=== PATIENT | male | born 1980 | race Caucasian/White ===

== ENCOUNTER 2018-06-30 20:26 | Outpatient (REF) | payer BC, SELFPAY ==
[2018-06-30 21:34] LABS: Anion Gap 10.4 mmol/L (3-11); BUN 13 mg/dL (7-18); CO2 28.6 mmol/L (21.0-32.0); CREATININE 0.83 mg/dL (0.70-1.30); Calcium 9.4 mg/dL (8.5-10.1); Chloride 101 mmol/L (98-107); Glucose 110 mg/dL (70-100); Potassium 4.3 mmol/L (3.5-5.1); Sodium 140 mmol/L (136-145)
== END 2018-06-30 20:46 ==
LOC: NCHCN 20:26
PROVIDERS: PCP Internal Medicine; Visit Provider Specialist/Technologist Athletic Trainer
DX: Z00.00 Encounter for general adult medical examination without abnormal findings (principal); E11.9 Type 2 diabetes mellitus without complications; I10 Essential (primary) hypertension
CPT/HCPCS: 80048

== ENCOUNTER 2020-11-13 03:24 | Outpatient (CLI) | payer BC, SELFPAY ==
--- NOTE | 2020-12-16 08:38 | W.CARDEVENT ---
Date of service: 12/16/20 Time of Service: 08:38 Cardiac Event Recorder Referring Provider:: Gena Indications:: A Cardiac Event Note: This is a 30-day monitor order for indication of palpitations. ?The patient was in normal sinus rhythm for the majority of the recording with an average heart rate of 87 bpm. ?There were 7 auto triggers which were associated with sinus tachycardia. ?There were 11 patient triggers associated with sinus rhythm and occasional PACs or PVCs. ?There are no episodes of atrial fibrillation, no pauses greater than 3 seconds and no evidence of high degree heart block.
== END 2020-11-13 03:25 | disposition home or self-care (01) ==
LOC: RT 03:24
PROVIDERS: PCP Internal Medicine; Visit Provider Nurse Practitioner Family
DX: R00.2 Palpitations (principal)
CPT/HCPCS: 93270

== ENCOUNTER 2021-01-17 08:44 | Outpatient (REF) | payer BC, SELFPAY ==
[2021-01-17 14:28] LABS: ALT 90 U/L (16-63); AST 31 U/L (15-37); Albumin 4.4 g/dL (3.4-5.0); Alkaline Phosphatase 53 U/L (46-116); BUN 12 mg/dL (7-18); Bilirubin, Total 0.5 mg/dL (0.2-1.0); CREATININE 0.9 mg/dL (0.70-1.30); Calcium 9.2 mg/dL (8.5-10.1); Chloride 105 mmol/L (98-107); Glucose 174 mg/dL (74-106); Potassium 4.6 mmol/L (3.5-5.1); Sodium 141 mmol/L (136-145); Total Protein 7.2 g/dL (6.4-8.2)
[2021-01-17 14:56] LABS: Hemoglobin A1C 7.4 % (<5.7)
[2021-01-17 21:25] LABS: Calculated LDL 62 mg/dL (<100); Cholesterol 124 mg/dL (<200); HDL Cholesterol 31 mg/dL (40-60); Triglyceride 159 mg/dL (<150)
== END 2021-01-17 08:45 | disposition home or self-care (01) ==
LOC: NCHCN 08:44
PROVIDERS: PCP Internal Medicine; Visit Provider Nurse Practitioner Family
DX: E11.9 Type 2 diabetes mellitus without complications (principal); E78.5 Hyperlipidemia, unspecified; I10 Essential (primary) hypertension; I49.9 Cardiac arrhythmia, unspecified
CPT/HCPCS: 80053; 80061; 83036

== ENCOUNTER 2021-05-01 16:48 | Outpatient (REF) | payer BC, SELFPAY ==
[2021-05-01 19:55] LABS: ALT 69 U/L (16-63)
[2021-05-01 20:00] LABS: Hemoglobin A1C 6.9 % (<5.7)
== END 2021-05-01 16:49 | disposition home or self-care (01) ==
LOC: NCHCN 16:48
PROVIDERS: PCP Internal Medicine; Visit Provider Nurse Practitioner Family
DX: Z00.01 Encounter for general adult medical examination with abnormal findings (principal); E11.9 Type 2 diabetes mellitus without complications
CPT/HCPCS: 83036; 84460

== ENCOUNTER 2022-09-21 17:10 | Outpatient (REF) | payer BC, SELFPAY ==
[2022-09-21 19:32] LABS: Hemoglobin A1C 6.8 % (<5.7)
[2022-09-21 19:44] LABS: ALT 65 U/L (16-63); AST 23 U/L (15-37); Albumin 4.4 g/dL (3.4-5.0); Alkaline Phosphatase 56 U/L (46-116); Anion Gap 8.7 mmol/L (3-11); BUN 16 mg/dL (7-18); Bilirubin, Total 0.5 mg/dL (0.2-1.0); CO2 27.3 mmol/L (21.0-32.0); Calcium 9.4 mg/dL (8.5-10.1); Chloride 104 mmol/L (98-107); Estimated GFR 96.97 (mL/min/1.73m2); Glucose 124 mg/dL (74-106); Magnesium 2.1 mg/dL (1.8-2.4); Potassium 4.1 mmol/L (3.5-5.1); Sodium 140 mmol/L (136-145); Total Protein 7.5 g/dL (6.4-8.2)
== END 2022-09-21 17:11 | disposition home or self-care (01) ==
LOC: NCHCN 17:10
PROVIDERS: PCP Internal Medicine; Visit Provider Nurse Practitioner Family
DX: Z00.00 Encounter for general adult medical examination without abnormal findings (principal); E11.9 Type 2 diabetes mellitus without complications; I10 Essential (primary) hypertension; E78.5 Hyperlipidemia, unspecified; R25.2 Cramp and spasm
CPT/HCPCS: 80053; 83036; 83735

== ENCOUNTER 2023-08-13 17:18 | Outpatient (REF) | payer BC, SELFPAY ==
[2023-08-13 20:06] LABS: Hemoglobin A1C 6.9 % (<5.7)
[2023-08-13 20:37] LABS: ALT 81 U/L (16-63); AST 33 U/L (15-37); Albumin 4.6 g/dL (3.4-5.0); Alkaline Phosphatase 54 U/L (46-116); Anion Gap 9.5 mmol/L (3-11); BUN 16 mg/dL (7-18); Bilirubin, Total 0.6 mg/dL (0.2-1.0); CO2 28.5 mmol/L (21.0-32.0); Calcium 9.5 mg/dL (8.5-10.1); Chloride 102 mmol/L (98-107); Estimated GFR 96.37 (mL/min/1.73m2); Glucose 179 mg/dL (74-106); Potassium 4.1 mmol/L (3.5-5.1); Sodium 140 mmol/L (136-145)
== END 2023-08-13 17:19 | disposition home or self-care (01) ==
LOC: NCHCN 17:18
PROVIDERS: PCP Internal Medicine; Visit Provider Nurse Practitioner Family
DX: E11.9 Type 2 diabetes mellitus without complications (principal); E78.5 Hyperlipidemia, unspecified
CPT/HCPCS: 80053; 83036

== ENCOUNTER 2024-03-14 14:36 | Observation (INO) | payer BC, SELFPAY ==
[2024-03-14 14:45] VITALS: BP 143/98; PULSE 61; RESP 10; TEMP 36.4; O2SAT 97
--- NOTE | 2024-03-14 14:45 | RT.EKG_ITS ---
APPROVED REPORT Exam: Resting ECG Reason for Exam: dizzy Patient Location: E HR:65 bpm ECG Measurements Heart Rate 65 AXIS CA 164 P 39 QRSd 117 QRS 40 QT 394 T 43 QTc 411 Conclusion Sinus rhythm, rate 65 ST elevation consistent with benign early repol, inf. leads
[2024-03-14 14:53] VITALS: RESP 12
[2024-03-14 15:57] LABS: Abs Immature Grans 0.03 10^3/uL (0.0-0.06); Absolute Basophil Count 0.07 10^3/uL (0.0-0.2); Absolute Eosinophil Count 0.09 10^3/uL (0.0-0.7); Absolute Lymphocyte Count 1.26 10^3/uL (1.2-3.4); Absolute Monocyte Count 0.65 10^3/uL (0.1-0.8); Absolute Neutrophil Count 4.61 10^3/uL (1.2-6.7); Eosinophils % 1.3 %; HCT 53.4 % (40.0-50.0); HGB 18.3 g/dL (13.5-17.5); Immature Grans % 0.4 %; Lymphocytes % 18.8 %; MCH 30.6 pg (27.0-33.0); MCHC 34.3 % (32.0-36.0); MCV 89 fL (80-95); Monocytes % 9.7 %; Neutrophils % 68.8 %; Platelet Count 266 10^3/uL (130-400); RBC 5.99 10^6/uL (4.36-5.78); RDW 12.1 % (11.8-14.1); WBC 6.71 10^3/uL (4.4-10.8)
--- NOTE | 2024-03-14 16:03 | W.ED.GENAD ---
Discharge Plan Disposition Patient Disposition: Admit to [facility] Condition: Stable Discharge Details Chief Complaint: Dizzy/Sync Clinical Impression: Binocular vision disorder with diplopia, Ataxic gait determined by examination Primary Care Provider: Jesus Calvo ED Provider: Catherine Pinedo Home Meds and New Rx's Prescriptions: No Action Jardiance 10 mg tablet 10 mg PO DAILY lisinopril 5 mg tablet 5 mg PO DAILY metformin 500 mg tablet 1,000 mg PO BID rosuvastatin 10 mg tablet 10 mg PO DAILY loratadine [Allerclear] 10 mg tablet 10 mg PO DAILY HPI General Mode of arrival: ambulatory. Date/Time Provider Initiated Documentation: 03/14/24 14:43. Limitations to Documentation: no limitations. Information obtained by: patient, family and old records reviewed. HPI Narrative: HPI: This is a 43-year-old male patient with a past medical history of type 2 diabetes, presenting for evaluation of double vision. The patient reports that at 7 or 730 this morning he was taking a shower, had close his eyes to wash his face and when he opened them again he noted that he was experiencing double vision. He reports that this double vision has persisted throughout the morning, and prompted him to seek care when it did not get better on its own. The patient wears glasses for visual correction, states that when both of his eyes are open and they seem blurry and he has double vision but it corrects when he closes 1 or the other of his eye. Prior to this event the patient was in his normal state of health. He has not had trauma, illness, or fever. He has no personal history of stroke, has not undergone any chiropractic manipulations of his neck. He has been taking all of his medications as prescribed. He has no personal cardiac disease, no chest pain, no shortness of breath. He does note that his gait seems slightly unsteady and he felt unsafe walking. Has not noted any weakness, numbness of any part of his body. Has no personal history of thromboembolic disease and does not utilize anticoagulant medications. Exam: Gen: Awake and alert, in no apparent distress HEENT: Non-icteric sclera, pupils are equal and reactive at 3 mm bilaterally. EOMs are full without grossly apparent cranial nerve deficits, the diplopia is reproducible with downward gaze, no nystagmus appreciated. No visual field cuts, visual acuity is 20/20 for each eye individually, 20/70 with binocular vision, corrected. Neck: Supple, no meningismus or pain Lungs: No apparent respiratory distress, normal respiratory effort. CV: Appears well perfused, strong and symmetrical distal pulses Abdomen: Non-distended MSK: Moves 4 extremities without apparent limitation in ROM Skin: Visualized skin without rashes, cyanosis. Neuro: Cranial nerves II through XII intact and symmetrical bilaterally with the exception of the reported double vision. 5 out of 5 strength x 4 extremities, no pronator drift. The patient has minimally poor targeting with [id number] on the left side, and his gait is notable for severe left sided ataxia. Psych: Appropriate for situation. MDM: In brief, this is a 43-year-old male patient with a history of diabetes presenting for evaluation of sudden onset diplopia and ataxia. Last seen normal 7 AM, out of range of tPA administration time. My differential includes but is not limited to stroke, vascular abnormality including aneurysm, dissection, considered intracranial hemorrhage. Considered intracranial mass with mass effect, cranial nerve compression, venous sinus thrombosis. I considered demyelinating diseases. No headache or eye pain to suggest temporal arteritis, glaucoma, optic neuritis. No fever to suggest meningitis or encephalitis, no recent trauma. We will obtain laboratory studies to include CBC, CMP, troponin, magnesium, PT/INR. Unfortunately, we do not have the ability to get a MRI in our facility at this time of day, so our initial imaging strategy will be CT/CTA of the head and neck. ED Course: I independently interpreted the laboratory studies, which show no significant leukocytosis, anemia, or thrombocytopenia. The chemistry panel is without evidence of electrolyte abnormality, kidney dysfunction, or liver injury. Was negative. CTA imaging of the head and neck was independently reviewed by myself, shows no evidence of intracranial hemorrhage, vascular abnormality, or mass effect. [facility] teleneurology was consulted, who evaluated the patient, and are concerned for a left 4th nerve palsy, left gait ataxia, and recommended MRI with and without contrast to evaluate for microvascular disease, stroke, demyelinating disease, etc. Unfortunately, [facility] is unable able to accept patients for admission at this time, and so the patient will be admitted to our hospital team awaiting MRI. I did load the patient with aspirin and Plavix, and obtained laboratory studies to include A1c, lipid panel, ESR, and TSH per neurology request. The patient remained hemodynamically appropriate while under my care and was transferred from our department without incident. Catherine Pinedo MD Related Data Home Medications ?Medication ?Instructions ?Recorded ?Confirmed empagliflozin 10 mg tablet 10 mg PO DAILY 03/14/24 03/14/24 (Jardiance) lisinopril 5 mg tablet 5 mg PO DAILY 03/14/24 03/14/24 loratadine 10 mg tablet 10 mg PO DAILY 03/14/24 03/14/24 (Allerclear) metformin 500 mg tablet 1,000 mg PO BID 03/14/24 03/14/24 rosuvastatin 10 mg tablet 10 mg PO DAILY 03/14/24 03/14/24 Allergies Allergy/AdvReac Type Severity Reaction Status Date / Time No Known Allergies Allergy Unverified 03/14/24 14:48 General Stated Complaint: Dizzy/Sync TARYN: 2 Course Vital Signs Vital signs: Vital Signs Temperature 36.4 C 03/14/24 14:45 Pulse 61 03/14/24 14:45 Respiratory Rate 10 L 03/14/24 14:45 Blood Pressure 143/98 H 03/14/24 14:45 Pulse Oximetry 97 03/14/24 14:45 Temperature 36.4 C 03/14/24 14:45 Temperature Source Skin 03/14/24 14:45 Pulse 61 03/14/24 14:45 Respiratory Rate 12 03/14/24 14:53 Respiratory Effort Normal, Non-Labored 03/14/24 14:53 Respiratory Depth Normal 03/14/24 14:53 Respiratory Pattern Normal 03/14/24 14:53 Blood Pressure 143/98 H 03/14/24 14:45 Blood Pressure Position Sitting 03/14/24 14:45 Pulse Oximetry 97 03/14/24 14:45 Oxygen Delivery Method Room Air 03/14/24 14:45 Oxygen Flow Rate 0 03/14/24 14:45 Pain Level 0 03/14/24 14:45 Lab/Test Results Lab/Test Results: Laboratory Tests Range/Units 03/14/24 15:35 WBC (4.4-10.8) 10^3/uL 6.71 RBC (4.36-5.78) 10^6/uL 5.99 H Hgb (13.5-17.5) g/dL 18.3 H Hct (40.0-50.0) % 53.4 H MCV (80-95) fL 89 MCH (27.0-33.0) pg 30.6 MCHC (32.0-36.0) % 34.3 RDW (11.8-14.1) % 12.1 Plt Count (130-400) 10^3/uL 266 MPV (8.0-11.0) fL 10.0 Immature Gran % % 0.4 Neutrophils % % 68.8 Lymphocytes % % 18.8 Monocytes % % 9.7 Eosinophils % % 1.3 Basophils % % 1.0 Nucleated RBC % (0.0-0.3) % 0.0 Absolute Neutrophils (1.2-6.7) 10^3/uL 4.61 Absolute Lymphocytes (1.2-3.4) 10^3/uL 1.26 Absolute Monocytes (0.1-0.8) 10^3/uL 0.65 Absolute Eosinophils (0.0-0.7) 10^3/uL 0.09 Absolute Basophils (0.0-0.2) 10^3/uL 0.07 Medical Decision Making Quality:SDOH Health Related Social Needs: No Data to Display Critical Care Time Critical Care Time Critical Care Time: Yes Total Critical Care Time: 45 Attestation: Upon my evaluation, this patient had a high probability of imminent or life-threatening deterioration due to cerebellar stroke, which required my direct attention, intervention, and personal management. I have personally provided 45 minutes of critical care time exclusive of time spent on separately billable procedures. Time includes review of laboratory data, radiology results, discussion with consultants, and monitoring for potential decompensation. Interventions were performed as documented above. Catherine Pinedo MD [facility] All Active Problems (Updated 03/14/24 @ 22:07 by Catherine Pinedo MD) Ataxic gait determined by examination (Acute) Binocular vision disorder with diplopia (Acute) Social History Smoking/Tobacco Use Status: Never Smoking risk assessment performed?: Yes Alcohol Intake: current Alcohol Intake frequency: a few times a month Drug use: Never Substance use type: does not use Housing: house Do you feel safe at home: Yes Do you feel safe in your relationship?: Yes PAWSS Have you Been Recently Intoxicated or Drunk Within the Last 30 days?: No Have you Ever Experienced Previous Episodes of Alcohol Withdrawal?: No Have you ever Experienced Withdrawal Seizures?: No Have you ever Experienced Delirium Tremens(DT)s?: No Have you ever undergone Alcohol Rehabilitation Treatment (i.e, inpt ot outpatient treatment programs)?: No Have you ever Experienced Blackouts?: No Have you ever Combined Alcohol with other Downers within the last 90 days?: No Have you ever Combined Alcohol with any other Substance of Abuse during the last 90 days?: No Positive Blood Alcohol level on Presentation? [PCS.BAL]: No Evidence of Increased Autonomic Activity (i.e. HR>120, tremor, sweating, agitation, nausea)?: No Result: 0
[2024-03-14 16:21] LABS: ALT 81 U/L (16-63); AST 23 U/L (15-37); Albumin 4.6 g/dL (3.4-5.0); Alkaline Phosphatase 60 U/L (46-116); BUN 13 mg/dL (7-18); Bilirubin, Total 0.76 mg/dL (0.2-1.0); CREATININE 0.8 mg/dL (0.70-1.30); Calcium 9.6 mg/dL (8.5-10.1); Chloride 103 mmol/L (98-107); Estimated GFR 113.32 (mL/min/1.73m2); Glucose 145 mg/dL (74-106); Potassium 3.7 mmol/L (3.5-5.1); Sodium 141 mmol/L (136-145); Troponin I 9 ng/L (4-76)
[2024-03-14 16:23] LABS: INR 1.1 (0.9-1.1); Prothrombin Time 10.9 sec (9.1-11.1)
[2024-03-14] MEDS: Omnipaque 350 MG/ML 100 ML BTL 70 ML IJ (16:54)
[2024-03-14] MEDS: Normal Saline - Diluent 50 ML VIAL IJ (16:54)
--- NOTE | 2024-03-14 17:00 | DI.CT_ITS ---
Exam(s) CT BRAIN NECK CTA EXAM: CT BRAIN NECK CTA CLINICAL HISTORY: Double vision, ataxia. TECHNIQUE: Imaging Protocol: Axial CT angiography was performed with multi-slice acquisition and mu lti-planar and/or 3D reconstructions. CONTRAST MATERIAL: Intravenous: Omnipaque 350 contrast volume:70 mL COMPARISON: No exams were available for comparison FINDINGS: CT Head W/O and W: Ventricles and Extra axial spaces: Normal in size and morphology for the patient's age. Hemorrhage: None. Cerebral parenchyma: There is a normal live-white matter differentiation. Midline shift: None. Brainstem/Cerebellum: Normal. Calvarium: Normal. Visualized Paranasal sinuses/Mastoids: Clear. Soft Tissues: Unremarkable. Enhancement: Unremarkable. Pituitary gland: Pituitary gland appears grossly unremarkable. No evidence of a sellar or suprasella r mass is appreciated. CTA Neck W: Common Carotid: Right: No dissection, occlusion or significant stenosis. Left: No dissection, occlusion or significant stenosis. External Carotid: Right: No occlusion or significant stenosis. Left: No occlusion or significant stenosis. Internal Carotid: Right: No dissection, occlusion or significant stenosis. Left: No dissection, occlusion or significant stenosis. Vertebral Artery: Right: No dissection, occlusion or significant stenosis. Left: No dissection, occlusion or significant stenosis. Lung Apices: Normal. Bones: Within normal limits for the patient's age. Soft Tissues: Normal. Thyroid gland: Unremarkable. CTA Brain W: Internal Carotid Arteries: Mild atherosclerotic calcification is seen in the cavernous portion of the right internal carotid artery. No occlusion or significant stenosis is seen. No aneurysm is apprec iated. Anterior Cerebral Arteries: Right: No aneurysm, occlusion or significant stenosis. Left: No aneurysm, occlusion or significant stenosis. Middle Cerebral Arteries: Right: No aneurysm, occlusion or significant stenosis. Left: No aneurysm, occlusion or significant stenosis. Posterior Cerebral Arteries: Right: No aneurysm, occlusion or significant stenosis. Left: No aneurysm, occlusion or significant stenosis. Vertebral Arteries: Right: No aneurysm, occlusion or significant stenosis. Left: No aneurysm, occlusion or significant stenosis. Basilar Artery: No aneurysm, occlusion or significant stenosis. IMPRESSION: 1. No large vessel occlusion or significant stenosis on the CT angiography of the head. 2. No acute intracranial process. 3. No occlusion or significant stenosis on the CT angiography of the neck. RADIATION DOSE DELIVERED: 2,427.67mGy.cm Total DLP DATA REPOSITORY: All CT scans at this facility are submitted to the National Radiology Data Registry (NRDR) Dose Index Registry (DIR) with the [employer] ([employer]). RADIATION OPTIMIZATION: All CT scans at this facility use at least one of these dose optimization te chniques: automated exposure control; mA and/or kV adjustment per patient size (includes targeted exa ms where dose is matched to clinical indication); or iterative reconstruction.
[2024-03-14 17:58] LABS: Troponin I 7 ng/L (4-76)
[2024-03-14 18:30] VITALS: BP 140/66; PULSE 78; RESP 16; O2SAT 96
[2024-03-14] MEDS: Acetaminophen 500 MG TAB 1000 MG PO (19:00)
--- NOTE | 2024-03-14 19:16 | NUR.NOTE ---
Nursing Note: this radio script writer in room for teleneuro consult; assisted with exam.
[2024-03-14 20:00] LABS: ESR 3 mm/hr (0-15)
[2024-03-14] MEDS: Aspirin 81 MG CHEW 324 MG CH (20:04)
[2024-03-14] MEDS: Clopidogrel 300 MG TAB PO ×2 (20:04)
[2024-03-14 20:11] LABS: Hemoglobin A1C 7.8 % (<5.7)
[2024-03-14 20:19] LABS: Calculated LDL 73 mg/dL (<100); Cholesterol 128 mg/dL (<200); HDL Cholesterol 36 mg/dL (40-60); TSH (W/Ref FT4) 0.78 uIU/mL (0.36-3.74); Triglyceride 96 mg/dL (<150)
[2024-03-14 21:56] VITALS: BP 133/69; PULSE 80; RESP 16; O2SAT 97
--- NOTE | 2024-03-14 22:38 | HPE_ITS ---
Date of service: 03/14/24 Time of Service: 22:38 Assessment and Plan Assessment and plan (1) Binocular vision disorder with diplopia: Start date: 03/14/24 Status: Acute Assessment and plan: This is a 43-year-old gentleman with sudden onset of vertical diplopia without obvious nystagmus and only slight right temporal headache after the onset of symptoms. He also has discoordinated over his left side. Double vision disappears with sitting still and rest as well as when he closes either eye. CTA of the head and neck were nonrevealing and patient is scheduled for MRI with and without contrast in the morning for further diagnostic evaluation. He is diabetic which prevent risk for microvascular infarction. Differential diagnosis includes embolic disease and if evaluation for CVA is completely negative, patient will follow-up with ophthalmology with whom he already has a relationship. He is on dual platelet therapy and is on DVT prophylaxis with no contraindication this treatment. Will be seen by physical therapy. Follow-up teleneurology consultation may be sought after investigations completed especially if patient is not continuing to improve. His antihypertensive treatment will be held with permissive hypertension. He is a full code. (2) Ataxia due to acute cerebrovascular disease: Start date: 03/14/24 Status: Acute Assessment and plan: Associated with vertical diplopia. Evaluation as above. Physical therapy evaluation and treatment. (3) Polycythemia: Start date: 03/14/24 Status: Acute Assessment and plan: Patient did have a hematocrit about 50% of admission but this corrected with fluid resuscitation given in the ED. Trend labs. Consider further evaluation with ferritin and iron levels if indicated. (4) HTN (hypertension): Status: Chronic Assessment and plan: Permissive hypertension possibility of acute CVA. Qualifiers: Hypertension type: primary hypertension Qualified Code(s): I10 - Essential (primary) hypertension (5) Type 2 diabetes mellitus: Status: Chronic Assessment and plan: Hold outpatient medical therapy and check glucometers before meals and at bedtime with sliding scale coverage using short acting insulin. Qualifiers: Diabetes mellitus complication status: without complication Diabetes mellitus termite treater helper insulin use: without termite treater helper use Qualified Code(s): E11.9 - Type 2 diabetes mellitus without complications (6) Hyperlipidemia: Status: Chronic Assessment and plan: Continue statin therapy. Qualifiers: Hyperlipidemia type: mixed hyperlipidemia Qualified Code(s): E78.2 - Mixed hyperlipidemia History of Present Illness History of Present Illness Chief Complaint: Double vision Narrative: This is a 43-year-old male patient with sudden onset of double vision without headache initially but now mild flight parietal headache and having some focal incoordination over his left side. He reported to the ED and was evaluated with normal CTA of the head neck and no dysrhythmias. Teleneurology did recommend observation with dual antiplatelet therapy initiated and follow-up MRI with and without contrast in the morning. Patient sed rate was normal and the differential diagnosis includes CVA not be a candidate for tPA with the patient not reporting to the ED for hours after onset of symptoms and having no large vessel occlusions requiring thrombectomy. He does have diabetes as risk factor this might be a microvascular infarction. Demyelinating disease is in the differential and should be ruled out by MRI with and without contrast and is reassuring that he has normal sed rate. Patient will have full evaluation for stroke symptoms including echo with bubble study and MRI. Physical therapy will evaluate and treat the patient. He still having marked dysfunction with discoordination over his left side. At rest his double vision improves but he still sees objects stacked on top of each other when he moves around the room or moves his head. His diplopia goes away when he closes either eye. He has no other neurological complaints. He denies any vertiginous symptoms or nausea. He is a full code. Review of Systems Narrative: 13 point review of systems otherwise unrevealing or stable. PFSH All Active Problems (Updated 03/14/24 @ 23:16 by Baudilio Soto) Polycythemia (Acute) Hyperlipidemia (Chronic) Type 2 diabetes mellitus (Chronic) HTN (hypertension) (Chronic) Ataxia due to acute cerebrovascular disease (Acute) Ataxic gait determined by examination (Acute) Binocular vision disorder with diplopia (Acute) Social History Smoking/Tobacco Use Status: Never Smoking risk assessment performed?: Yes Alcohol Intake: current Alcohol Intake frequency: a few times a month Drug use: Never Substance use type: does not use Housing: house Do you feel safe at home: Yes Do you feel safe in your relationship?: Yes Meds Allergies and Home Medications Allergies Allergy/AdvReac Type Severity Reaction Status Date / Time No Known Allergies Allergy Unverified 03/14/24 14:48 Home Medications ?Medication ?Instructions ?Recorded ?Confirmed ?Type empagliflozin 10 mg tablet 10 mg PO DAILY 03/14/24 03/14/24 History (Jardiance) lisinopril 5 mg tablet 5 mg PO DAILY 03/14/24 03/14/24 History loratadine 10 mg tablet 10 mg PO DAILY 03/14/24 03/14/24 History (Allerclear) metformin 500 mg tablet 1,000 mg PO BID 03/14/24 03/14/24 History rosuvastatin 10 mg tablet 10 mg PO DAILY 03/14/24 03/14/24 History Exam Narrative Exam Narrative: General: Patient appears appropriate for age, moderately obese, alert and oriented x 3 and in no acute distress. HEENT: Normocephalic, eyes with pupils equal and react to light symmetrically, extraocular movement is intact without nystagmus. Sclerae anicteric. Oropharynx with moist mucosa and good dentition. Neck: Supple without JVD and no auscultated bruits. Back: Stooped posture without CVA tenderness. Lungs: Clear to auscultation percussion with normal aeration with no focalizing rales or rhonchi. Expiratory wheeze. Heart: Regular rate and rhythm with no murmurs gallops appreciated. Abdomen: Obese contour, soft nontender to palpation with no palpable hepatosplenomegaly. Bowel sounds positive all quadrants. Genitalia/rectal exam deferred. Extremities without clubbing, cyanosis or pitting edema. Peripheral pulses intact. Skin: Normal color, warm and dry. Neuro: Cranial nerves II through XII gross intact, no focalizing motor weakness or deficits. Romberg is positive the patient swelling to the left. No Babinski's. DTRs of his symmetrical. No tremor. Heel-to-toe walking is impaired as is [id number] touch with the left hand. (See teleneurology's consultation with evaluation for detailed neurological exam). Psych: Normal affect, normal mood. No abnormal thought processes. Remote and recent memory intact. Results Imaging Imaging Studies: EXAM: CT BRAIN NECK CTA CLINICAL HISTORY: Double vision, ataxia. TECHNIQUE: Imaging Protocol: Axial CT angiography was performed with multi- slice acquisition and multi-planar and/or 3D reconstructions. CONTRAST MATERIAL: Intravenous: Omnipaque 350 contrast volume:70 mL COMPARISON: No exams were available for comparison FINDINGS: CT Head W/O and W: Ventricles and Extra axial spaces: Normal in size and morphology for the patient's age. Hemorrhage: None. Cerebral parenchyma: There is a normal live-white matter differentiation. Midline shift: None. Brainstem/Cerebellum: Normal. Calvarium: Normal. Visualized Paranasal sinuses/Mastoids: Clear. Soft Tissues: Unremarkable. Enhancement: Unremarkable. Pituitary gland: Pituitary gland appears grossly unremarkable. No evidence of a sellar or suprasellar mass is appreciated. CTA Neck W: Common Carotid: Right: No dissection, occlusion or significant stenosis. Left: No dissection, occlusion or significant stenosis. External Carotid: Right: No occlusion or significant stenosis. Left: No occlusion or significant stenosis. Internal Carotid: Right: No dissection, occlusion or significant stenosis. Left: No dissection, occlusion or significant stenosis. Vertebral Artery: Right: No dissection, occlusion or significant stenosis. Left: No dissection, occlusion or significant stenosis. Lung Apices: Normal. Bones: Within normal limits for the patient's age. Soft Tissues: Normal. Thyroid gland: Unremarkable. CTA Brain W: Internal Carotid Arteries: Mild atherosclerotic calcification is seen in the cavernous portion of the right internal carotid artery. No occlusion or significant stenosis is seen. No aneurysm is appreciated. Anterior Cerebral Arteries: Right: No aneurysm, occlusion or significant stenosis. Left: No aneurysm, occlusion or significant stenosis. Middle Cerebral Arteries: Right: No aneurysm, occlusion or significant stenosis. Left: No aneurysm, occlusion or significant stenosis. Posterior Cerebral Arteries: Right: No aneurysm, occlusion or significant stenosis. Left: No aneurysm, occlusion or significant stenosis. Vertebral Arteries: Right: No aneurysm, occlusion or significant stenosis. Left: No aneurysm, occlusion or significant stenosis. Basilar Artery: No aneurysm, occlusion or significant stenosis. IMPRESSION: 1. No large vessel occlusion or significant stenosis on the CT angiography of the head. 2. No acute intracranial process. 3. No occlusion or significant stenosis on the CT angiography of the neck. Labs 03/15/24 05:40 03/15/24 05:40 Labs: Laboratory Results - last 24 hr 03/14/24 03/14/24 03/14/24 15:35 16:06 16:30 WBC 6.71 RBC 5.99 H Hgb 18.3 H Hct 53.4 H MCV 89 MCH 30.6 MCHC 34.3 RDW 12.1 Plt Count 266 MPV 10.0 Immature Gran % 0.4 Neutrophils % 68.8 Lymphocytes % 18.8 Monocytes % 9.7 Eosinophils % 1.3 Basophils % 1.0 Nucleated RBC % 0.0 Absolute Neutrophils 4.61 Absolute Lymphocytes 1.26 Absolute Monocytes 0.65 Absolute Eosinophils 0.09 Absolute Basophils 0.07 ESR 3 PT 10.9 INR 1.1 Sodium 141 Potassium 3.7 Chloride 103 Carbon Dioxide 26.0 Anion Gap 12.0 H BUN 13 Creatinine 0.8 Est GFR (CKD-EPI 2020) 113.32 Glucose 145 H Hemoglobin A1c 7.8 H Calcium 9.6 Magnesium 2.0 Total Bilirubin 0.76 AST 23 ALT 81 H Alkaline Phosphatase 60 Troponin I High Sens 9 7 Total Protein 8.0 Albumin 4.6 Triglycerides 96 Total Cholesterol 128 LDL Cholesterol, Calc 73 HDL Cholesterol 36 L TSH 0.78 03/14/24 18:46 WBC RBC Hgb Hct MCV MCH MCHC RDW Plt Count MPV Immature Gran % Neutrophils % Lymphocytes % Monocytes % Eosinophils % Basophils % Nucleated RBC % Absolute Neutrophils Absolute Lymphocytes Absolute Monocytes Absolute Eosinophils Absolute Basophils ESR PT INR Sodium Potassium Chloride Carbon Dioxide Anion Gap BUN Creatinine Est GFR (CKD-EPI 2020) Glucose Hemoglobin A1c Calcium Magnesium Total Bilirubin AST ALT Alkaline Phosphatase Troponin I High Sens Cancelled Total Protein Albumin Triglycerides Total Cholesterol LDL Cholesterol, Calc HDL Cholesterol TSH Last Vital Signs Temp 36.4 C 03/14/24 14:45 Pulse 80 03/14/24 21:56 Resp 16 03/14/24 21:56 BP 133/69 03/14/24 21:56 Pulse Ox 97 03/14/24 21:56 PAWSS Have you Been Recently Intoxicated or Drunk Within the Last 30 days?: No Have you Ever Experienced Previous Episodes of Alcohol Withdrawal?: No Have you ever Experienced Withdrawal Seizures?: No Have you ever Experienced Delirium Tremens(DT)s?: No Have you ever undergone Alcohol Rehabilitation Treatment (i.e, inpt ot outpatient treatment programs)?: No Have you ever Experienced Blackouts?: No Have you ever Combined Alcohol with other Downers within the last 90 days?: No Have you ever Combined Alcohol with any other Substance of Abuse during the last 90 days?: No Positive Blood Alcohol level on Presentation? [PCS.BAL]: No Evidence of Increased Autonomic Activity (i.e. HR>120, tremor, sweating, agitation, nausea)?: No Result: 0 Time Spent Time spent with Patient: >75 minutes Time was spent: preparing to see the patient(eg.review tests), obtaining and/or reviewing separately otained hiistory, ordering medications,tests, procedures, referring, communicating with other health physician primary care sports medicine, indepentently interpreting results, counseling the patient and care coordination
--- NOTE | 2024-03-15 00:28 | W.PC.ACHO ---
Registration Status: Primary Language: Preferred Language: ED Information & Data Chief Complaint Dizzy/Sync 03/14/24 16:04 Triage Note patient had sudden onset of 03/14/24 14:45 dizziness when he closed his eyes to wash his hair and then opened them at the spell hit. vision is blurred and doubled. has type II DM . Most Recent Vital Signs Temperature 36.4 C 03/14/24 14:45 Temperature Source Skin 03/14/24 14:45 Pulse 80 03/14/24 21:56 Respiratory Rate 16 03/14/24 21:56 Respiratory Effort Normal, Non-Labored 03/14/24 14:53 Respiratory Depth Normal 03/14/24 14:53 Respiratory Pattern Normal 03/14/24 14:53 Blood Pressure 133/69 03/14/24 21:56 Blood Pressure Position Sitting 03/14/24 14:45 Pulse Oximetry 97 03/14/24 21:56 Oxygen Delivery Method Room Air 03/14/24 21:56 Oxygen Flow Rate 0 03/14/24 21:56 Pain Level 0 03/14/24 14:45 Allergies No Known Allergies Allergy (Unverified 03/14/24 14:48) Precautions Isolation Standard precaution 03/14/24 14:51 Active Medications Generic Name Dose Route Start Last Admin Trade Name Freq PRN Reason Stop Dose Admin Iohexol 70 ml 03/14/24 17:00 03/14/24 16:54 Omnipaque 350 Mg/Ml 100 Ml Btl IJ 04/13/24 23:59 70 ml DIRECTED OLGA LIDIA Administration Sodium Chloride 50 ml 03/14/24 17:00 03/14/24 16:54 Normal Saline - Diluent 50 Ml Vial IJ 50 ml .FOR DI USE OLGA LIDIA Administration IV IV Catheter Type [Right Saline Lock Antecubital] IV Catheter Gauge [Right 18 Antecubital] Diagnostics 03/14/24 03/14/24 03/14/24 Range/Units 23:13 18:46 16:30 WBC Pending (4.4-10.8) 10^3/uL RBC Pending (4.36-5.78) 10^6/uL Hgb Pending (13.5-17.5) g/dL Hct Pending (40.0-50.0) % MCV Pending (80-95) fL MCH Pending (27.0-33.0) pg MCHC Pending (32.0-36.0) % RDW Pending (11.8-14.1) % Plt Count Pending (130-400) 10^3/uL MPV Pending (8.0-11.0) fL Immature Gran % % Neutrophils % % Lymphocytes % % Monocytes % % Eosinophils % % Basophils % % Nucleated RBC % (0.0-0.3) % Absolute Neutrophils (1.2-6.7) 10^3/uL Absolute Lymphocytes (1.2-3.4) 10^3/uL Absolute Monocytes (0.1-0.8) 10^3/uL Absolute Eosinophils (0.0-0.7) 10^3/uL Absolute Basophils (0.0-0.2) 10^3/uL ESR (0-15) mm/hr PT (9.1-11.1) sec INR (0.9-1.1) Sodium (136-145) mmol/L Potassium (3.5-5.1) mmol/L Chloride (98-107) mmol/L Carbon Dioxide (21.0-32.0) mmol/L Anion Gap (3-11) mmol/L BUN (7-18) mg/dL Creatinine (0.70-1.30) mg/dL Est GFR (CKD-EPI 2020) (mL/min/1.73m2) Glucose (74-106) mg/dL Hemoglobin A1c (<5.7) % Calcium (8.5-10.1) mg/dL Magnesium (1.8-2.4) mg/dL Total Bilirubin (0.2-1.0) mg/dL AST (15-37) U/L ALT (16-63) U/L Alkaline Phosphatase (46-116) U/L Troponin I High Sens Cancelled 7 (4-76) ng/L Total Protein (6.4-8.2) g/dL Albumin (3.4-5.0) g/dL Triglycerides (<150) mg/dL Total Cholesterol (<200) mg/dL LDL Cholesterol, Calc (<100) mg/dL HDL Cholesterol (40-60) mg/dL TSH (0.36-3.74) uIU/mL 03/14/24 03/14/24 Range/Units 16:06 15:35 WBC 6.71 (4.4-10.8) 10^3/uL RBC 5.99 H (4.36-5.78) 10^6/uL Hgb 18.3 H (13.5-17.5) g/dL Hct 53.4 H (40.0-50.0) % MCV 89 (80-95) fL MCH 30.6 (27.0-33.0) pg MCHC 34.3 (32.0-36.0) % RDW 12.1 (11.8-14.1) % Plt Count 266 (130-400) 10^3/uL MPV 10.0 (8.0-11.0) fL Immature Gran % 0.4 % Neutrophils % 68.8 % Lymphocytes % 18.8 % Monocytes % 9.7 % Eosinophils % 1.3 % Basophils % 1.0 % Nucleated RBC % 0.0 (0.0-0.3) % Absolute Neutrophils 4.61 (1.2-6.7) 10^3/uL Absolute Lymphocytes 1.26 (1.2-3.4) 10^3/uL Absolute Monocytes 0.65 (0.1-0.8) 10^3/uL Absolute Eosinophils 0.09 (0.0-0.7) 10^3/uL Absolute Basophils 0.07 (0.0-0.2) 10^3/uL ESR 3 (0-15) mm/hr PT 10.9 (9.1-11.1) sec INR 1.1 (0.9-1.1) Sodium 141 (136-145) mmol/L Potassium 3.7 (3.5-5.1) mmol/L Chloride 103 (98-107) mmol/L Carbon Dioxide 26.0 (21.0-32.0) mmol/L Anion Gap 12.0 H (3-11) mmol/L BUN 13 (7-18) mg/dL Creatinine 0.8 (0.70-1.30) mg/dL Est GFR (CKD-EPI 2020) 113.32 (mL/min/1.73m2) Glucose 145 H (74-106) mg/dL Hemoglobin A1c 7.8 H (<5.7) % Calcium 9.6 (8.5-10.1) mg/dL Magnesium 2.0 (1.8-2.4) mg/dL Total Bilirubin 0.76 (0.2-1.0) mg/dL AST 23 (15-37) U/L ALT 81 H (16-63) U/L Alkaline Phosphatase 60 (46-116) U/L Troponin I High Sens 9 (4-76) ng/L Total Protein 8.0 (6.4-8.2) g/dL Albumin 4.6 (3.4-5.0) g/dL Triglycerides 96 (<150) mg/dL Total Cholesterol 128 (<200) mg/dL LDL Cholesterol, Calc 73 (<100) mg/dL HDL Cholesterol 36 L (40-60) mg/dL TSH 0.78 (0.36-3.74) uIU/mL [id number] Documentation Fingerstick Glucose Start: 03/14/24 15:00 Freq: Status: Complete Protocol: Activity Type Activity Date Activity User E-sign Co-sign Detail Recorded Client Recorded Date Recorded By Document 03/14/24 14:59 BKG DAEMON(3) [id number] 03/14/24 15:00 BKG DAEMON(4) Intake and Output - 24 Hour Total 03/14/24 14:36 thru 03/14/24 14:45 Weight 115.666 kg Falls Risk Assessment History of Falls No History 03/14/24 14:51 Contributing Factors Unstable,Impairments 03/14/24 14:51 Ambulatory Aids Uses ambulatory device + 03/14/24 14:51 Tubes/Lines None 03/14/24 14:51 Gait Evaluation W/any additional score 03/14/24 14:51 Cognition No cognitive impairment 03/14/24 14:51 Fall Total Score 56 03/14/24 14:51 Level of Risk High Risk 03/14/24 14:51 Problems (Last Reviewed 03/14/24 @ 22:40 by Baudilio Soto) Polycythemia (Acute) Hyperlipidemia (Chronic) Type 2 diabetes mellitus (Chronic) HTN (hypertension) (Chronic) Ataxia due to acute cerebrovascular disease (Acute) Binocular vision disorder with diplopia (Acute) Notes 03/14/24 19:16 Nursing Notes by Margareth Nolan Nursing Note: this scientific technical writer in room for teleneuro consult; assisted with exam. Initialized on 03/14/24 19:16 - END OF NOTE v v v v v v v v v Sending and/or Receiving Nurses: Please use comment section below to note any information pertinent to the patient hand-off not included above. Information / Comments: Report received from: Margaret MONAE at 0021
[2024-03-15 00:40] VITALS: BP 132/75; PULSE 84; RESP 26; TEMP 36.3; O2SAT 98
[2024-03-15 01:18] LABS: HCT 49.7 % (40.0-50.0); HGB 17.4 g/dL (13.5-17.5); MCH 30.7 pg (27.0-33.0); MCV 88 fL (80-95); Platelet Count 252 10^3/uL (130-400); RBC 5.66 10^6/uL (4.36-5.78); RDW 12.2 % (11.8-14.1); RDW-SD 38.9 fL; WBC 7.87 10^3/uL (4.4-10.8)
[2024-03-15 01:30] VITALS: BP 138/76; PULSE 82; RESP 16; TEMP 36.6; O2SAT 100
[2024-03-15 06:20] LABS: HCT 50.8 % (40.0-50.0); HGB 17.4 g/dL (13.5-17.5); MCH 30.8 pg (27.0-33.0); MCHC 34.3 % (32.0-36.0); MCV 90 fL (80-95); Platelet Count 244 10^3/uL (130-400); RBC 5.65 10^6/uL (4.36-5.78); RDW 12.2 % (11.8-14.1); RDW-SD 40.4 fL; WBC 6.61 10^3/uL (4.4-10.8)
[2024-03-15] MEDS: Heparin 5,000 UNITS/ML VIAL 5000 UNITS SC ×3 (06:20→21:43)
[2024-03-15 06:45] LABS: ALT 66 U/L (16-63); AST 20 U/L (15-37); Alkaline Phosphatase 56 U/L (46-116); Anion Gap 10.7 mmol/L (3-11); BUN 16 mg/dL (7-18); Bilirubin, Total 0.44 mg/dL (0.2-1.0); CO2 24.3 mmol/L (21.0-32.0); CREATININE 0.8 mg/dL (0.70-1.30); Calcium 9.1 mg/dL (8.5-10.1); Chloride 104 mmol/L (98-107); Estimated GFR 113.32 (mL/min/1.73m2); Glucose 144 mg/dL (74-106); Magnesium 2.2 mg/dL (1.8-2.4); Potassium 3.7 mmol/L (3.5-5.1); Sodium 139 mmol/L (136-145)
[2024-03-15 07:26] VITALS: BP 121/78; PULSE 62; RESP 18; TEMP 36.6; O2SAT 96
--- NOTE | 2024-03-15 08:00 | DI.MRI_ITS ---
Exam(s) MR BRAIN WO/W EXAM: MR BRAIN WO/W CLINICAL HISTORY: Acute onset diplopia. TECHNIQUE: Multiplanar multisequence MRI of the brain was performed. CONTRAST MATERIAL: IV Contrast: 20 ML of Dotarem contrast administered. COMPARISON: CT CT BRAIN NECK CTA from 03/14/2024 FINDINGS: VENTRICLES AND EXTRA AXIAL SPACES: Normal in size and morphology for the patient's age. HEMORRHAGE: None. CEREBRAL PARENCHYMA: Tiny focus of high signal and restricted diffusion in the medial right mid brain consistent with acute lacunar infarct. No other areas of acute infarct. No space-occupying lesion i dentified. MIDLINE SHIFT: None. BRAINSTEM/CEREBELLUM: A few scattered focal areas of CSF signal are noted within both cerebellar frieda spheres which could indicate old lacunar infarcts. CALVARIUM: Normal. ENHANCEMENT: No suspicious enhancement identified. VISUALIZED PARANASAL SINUSES/MASTOIDS: Clear. Orbits: Unremarkable. Pituitary: Normal. Vasculature: Normal flow voids. IMPRESSION: Acute lacunar infarct in the right mid brain. DATA REPOSITORY:
[2024-03-15] MEDS: Clopidogrel 75 MG TAB PO (08:31)
[2024-03-15] MEDS: Aspirin 81 MG CHEW PO (08:31)
[2024-03-15] MEDS: Insulin Aspart 300 UNITS/3 ML PEN SC ×2 (08:37→12:01)
[2024-03-15] MEDS: Normal Saline Flush 10 ML SYR IVP ×2 (09:09→21:58)
[2024-03-15] MEDS: Gadoterate meglumine 20 ML SYRINGE IVP (09:10)
--- NOTE | 2024-03-15 09:48 | INITIAL_ITS ---
Date of service: 03/15/24 Time of Service: 09:48 Care Management Initial Assmt Initial Assessment Reason for Hospitalization: acute diplopoa and ataxia Functional Status/Living Situation Patient Presentation: was lying in bed with the head elevated, playing on his ipad when CM met with him. was pleasant, and easily engaged. His partner, Luz, was present also. They both talked about how scary 's symptoms were, and discussed having a hard time wrapping their heads around the fact that he has had a stroke. stated that his eye sight is slightly improved, and he feels safe walking. Denies any concerns about going home at this time. stated more than once that he would like to go home tonight. did state that this was a huge wake-up call and he feels he will now make his health a priority. Town of Residence: [place], [place] Resides with: Other (Luz, life partner) Significant Other/Family: Local (parents live locally.) Natural Supports: Girlfriend, family and friends Employment Status: Employed (Works full- time at [employer]) Instrumental Activities of Daily Living (ADLs): Independent Physical Functioning/Mobility Assistive Device: none. PT lanetteal completed this morning. Advance Directives Advance Directives: Do you have an Advance Directive: N 02/25/17 09:35 AD On File at [facility]: N 06/07/14 11:37 Date Asked 03/15/24 03/15/24 00:17 AD Date Reviewed COLST On File at [facility] COLST Date Scanned Code Status Resuscitation Status Full Code Insurance Coverage/Financial Issues Insurance: [facility] Financial Issues: denies Care Team Visit Care Team Role Provider Type Jesus Calvo MD Primary Care Provider [facility] STAFF PHYSICIAN InPatient Jcarlos Eden Other Providers OTHER Catherine Pinedo MD Emergency Provider [facility] STAFF PHYSICIAN Baudilio Soto Admit Provider NON-[facility] STAFF PHYSICIAN Attending Provider Discharge Potential Discharge Needs: PCP F/U Appt and Other (neurology f/u, opthalmology) Anticipated Barriers to Discharge: None Identified Patient/Family Education Needs: Review discharge instructions, discuss Ask Me Three Transportation: Private vehicle Plan: Anticipate that will be discharged home with no new services. He will follow up with his PCP , neurology,and opthalmology, and continue per discharge plan of care. He will transport in private vehicle driven by his girlfriend. CM will continue to follow. PFSH All Active Problems (Updated 03/15/24 @ 14:40 by Loreto Upton APRN) Lacunar infarct, acute (Acute) Discharge planning issues (Acute) On deep vein thrombosis (DVT) prophylaxis (Acute) Polycythemia (Acute) Hyperlipidemia (Chronic) Type 2 diabetes mellitus (Chronic) HTN (hypertension) (Chronic) Ataxia due to acute cerebrovascular disease (Acute) Ataxic gait determined by examination (Acute) Binocular vision disorder with diplopia (Acute) Social History Smoking/Tobacco Use Status: Never Smoking risk assessment performed?: Yes Alcohol Intake: current Alcohol Intake frequency: a few times a month Drug use: Never Substance use type: does not use Housing: house Do you feel safe at home: Yes Do you feel safe in your relationship?: Yes Readmission Within the Past 30 Days Yes or No: No SDOH(Care Management) Screening Will the Patient Participate in the Screening?: Yes Do you worry about having a steady place to live?: no Problems where you live: no known problems In the past 12 months, have you had to go without electric, gas, oil or water in your home?: no Have you or anyone in your house had to go without enough food to eat?: no Has lack of transportation kept you from medical appointments or from doing things needed for daily living?: no Has anyone in your support network made you feel unsafe for any reason?: no
--- NOTE | 2024-03-15 09:52 | PGE_ITS ---
Date of Service Date of service: 03/15/24 Time of Service: 09:53 Assessment and Plan Assessment and plan (1) Binocular vision disorder with diplopia: Start date: 03/14/24 Status: Acute Assessment and plan: LKW: 03/14/24 at 07AM and [facility] initiated by ED provider Head and neck CTA -IMPRESSION: 1. No large vessel occlusion or significant stenosis on the CT angiography of the head. 2. No acute intracranial process. 3. No occlusion or significant stenosis on the CT angiography of the neck. MRI showed Acute lacunar infarct in the right mid brain. Telemetry-Sinusal rhythm w/o ectopy Echo with bubble : results pending continue ASA and plavix and crestor A1C 7.8- DM criteria met Lipid panel TG 96 total chol 128 LDL 73 HDL 36- will continue crestor [facility] [place] consult : as per discussion with Dr. Cordon as expected this is most likely deep seated stroke d/t microvascular ischemia, improvement of visual symptoms 3-6 months if any -with recommendations for -Plavix X 3 weeks -ASA 81 mg ongoing -Zio patch X 2weeks -Crestor increase to 20 mg -Visual therapy -Neurology and ophthalmology referrals - (2) Lacunar infarct, acute: Status: Acute Assessment and plan: As above (3) Ataxia due to acute cerebrovascular disease: Start date: 03/14/24 Status: Acute Assessment and plan: As above Improving (4) Polycythemia: Start date: 03/14/24 Status: Acute Assessment and plan: H&H 17.4 & 49.7 on arrival now 17.4 & 50.8 (5) HTN (hypertension): Status: Chronic Assessment and plan: Permissive hypertension hold lisinopril Qualifiers: Hypertension type: primary hypertension Qualified Code(s): I10 - Essential (primary) hypertension (6) Type 2 diabetes mellitus: Status: Chronic Assessment and plan: A1C 7.8 goals less than 7.5 to discuss adjustment with PCP s/p discharge Continue jardiance Hold metformin Fingerstick AC and HS w SSI coverage Qualifiers: Diabetes mellitus complication status: without complication Diabetes mellitus terminal computer operator insulin use: without halfway use Qualified Code(s): E11.9 - Type 2 diabetes mellitus without complications (7) Hyperlipidemia: Status: Chronic Assessment and plan: On increased dose of home crestor Qualifiers: Hyperlipidemia type: mixed hyperlipidemia Qualified Code(s): E78.2 - Mixed hyperlipidemia (8) On deep vein thrombosis (DVT) prophylaxis: Status: Deleted Assessment and plan: heparin SC (9) Discharge planning issues: Status: Deleted Assessment and plan: PT consulted Neurology, ophthalmology PCP referral Discussed with Dr. Bangura Subjective Subjective Patient reports: feels better, tolerating liquids well and voiding w/o difficulty; denies nausea, vomiting, shortness of breath or fever Exam Narrative Exam Narrative: Constitutional The patient is well groomed without acute distress and has an obese body habitus HENMT: Head is atraumatic, normocephalic. Facial structures with normal appearance Eyes: Well aligned, intact ROM, intermittent diplopia with change in head positi on from lying back to prompting at 60 degrees up Neck: Normal ROM, no meningeal signs Neuro:alert and oriented to self, person, place, time and situation. No neurological focal deficit Chest:Chest is symmetrical and normal appearance Resp: Normal respiratory pattern, speaks in full sentences, unlabored breathing, clear lung bilaterally Cardio: Tele sinusal high 50's 60's -regular rhythm, S1, S2, no murmur, bilateral radial and dorsalis pedis pulses are positive GI: Abdomen is not distended, soft and non tender, bowel sounds are present Extremities: strength 5/5 to bilateral lower and upper extremities Psych: RASS 0, congruent mood and normal affect. Objective Last Vital Signs Temp 36.6 C 03/15/24 07:26 Pulse 62 03/15/24 07:26 Resp 18 03/15/24 07:26 BP 121/78 03/15/24 07:26 Pulse Ox 96 03/15/24 07:26 Laboratory Results - last 24 hr 03/14/24 03/14/24 03/14/24 15:35 16:06 16:30 WBC 6.71 RBC 5.99 H Hgb 18.3 H Hct 53.4 H MCV 89 MCH 30.6 MCHC 34.3 RDW 12.1 Plt Count 266 MPV 10.0 Immature Gran % 0.4 Neutrophils % 68.8 Lymphocytes % 18.8 Monocytes % 9.7 Eosinophils % 1.3 Basophils % 1.0 Nucleated RBC % 0.0 Absolute Neutrophils 4.61 Absolute Lymphocytes 1.26 Absolute Monocytes 0.65 Absolute Eosinophils 0.09 Absolute Basophils 0.07 ESR 3 PT 10.9 INR 1.1 Sodium 141 Potassium 3.7 Chloride 103 Carbon Dioxide 26.0 Anion Gap 12.0 H BUN 13 Creatinine 0.8 Est GFR (CKD-EPI 2020) 113.32 Glucose 145 H Hemoglobin A1c 7.8 H Calcium 9.6 Magnesium 2.0 Total Bilirubin 0.76 AST 23 ALT 81 H Alkaline Phosphatase 60 Troponin I High Sens 9 7 Total Protein 8.0 Albumin 4.6 Triglycerides 96 Total Cholesterol 128 LDL Cholesterol, Calc 73 HDL Cholesterol 36 L TSH 0.78 03/14/24 03/15/24 03/15/24 18:46 01:12 05:40 WBC 7.87 6.61 RBC 5.66 5.65 Hgb 17.4 17.4 Hct 49.7 50.8 H MCV 88 90 MCH 30.7 30.8 MCHC 35.0 34.3 RDW 12.2 12.2 Plt Count 252 244 MPV 10.0 10.0 Immature Gran % Neutrophils % Lymphocytes % Monocytes % Eosinophils % Basophils % Nucleated RBC % Absolute Neutrophils Absolute Lymphocytes Absolute Monocytes Absolute Eosinophils Absolute Basophils ESR PT INR Sodium 139 Potassium 3.7 Chloride 104 Carbon Dioxide 24.3 Anion Gap 10.7 BUN 16 Creatinine 0.8 Est GFR (CKD-EPI 2020) 113.32 Glucose 144 H Hemoglobin A1c Calcium 9.1 Magnesium 2.2 Total Bilirubin 0.44 AST 20 ALT 66 H Alkaline Phosphatase 56 Troponin I High Sens Cancelled Total Protein 7.0 Albumin 4.0 Triglycerides Total Cholesterol LDL Cholesterol, Calc HDL Cholesterol TSH Reviewed Pertinent PMH: Yes Objective Narrative Objective Narrative: CT PELVIC W EXAM: CT PELVIC W CLINICAL HISTORY: Right mid brain lacunar infarct and PFO. FINDINGS: Bladder: No gross wall thickening. No stones.No evidence of mass. Bowel: No obstruction or bowel wall thickening. Appendix normal. Peritoneal cavity: No ascites, collection or mesenteric inflammatory response. Reproductive: Unremarkable. Vasculature: No evidence of aortic or iliac artery aneurysm. mild atherosclerotic changes. No thrombus visible within iliac veins or IVC. Bones: No acute findings. Soft tissues: No acute findings. IMPRESSION: Normal CT scan of the pelvis. No thrombus visible with in pelvic veins. Exam(s) US EXTREMITY VENOUS BI EXAM: US EXTREMITY VENOUS BI CLINICAL HISTORY: Right Mid-brain lacunar infarct PFO. FINDINGS: The bilateral common femoral, femoral and popliteal veins demonstrate normal compressibility, augmentation, and color Doppler. The posterior tibial peroneal veins are patent. IMPRESSION: Right: Negative for DVT Left: Negative for DVT PAWSS Have you Been Recently Intoxicated or Drunk Within the Last 30 days?: No Have you Ever Experienced Previous Episodes of Alcohol Withdrawal?: No Have you ever Experienced Withdrawal Seizures?: No Have you ever Experienced Delirium Tremens(DT)s?: No Have you ever undergone Alcohol Rehabilitation Treatment (i.e, inpt ot outpatient treatment programs)?: No Have you ever Experienced Blackouts?: No Have you ever Combined Alcohol with other Downers within the last 90 days?: No Have you ever Combined Alcohol with any other Substance of Abuse during the last 90 days?: No Positive Blood Alcohol level on Presentation? [PCS.BAL]: No Evidence of Increased Autonomic Activity (i.e. HR>120, tremor, sweating, agitation, nausea)?: No Result: 0 Time Spent with Patient Time Spent with Patient: 35-49 minutes Time was spent: preparing to see the patient(eg.review tests), ordering medications,tests, procedures, referring, communicating with other health care p hollis, indepentently interpreting results, counseling the patient and care coordination
--- NOTE | 2024-03-15 10:12 | PT.INIE ---
PT Notes Visit Reasons: Acute diplopia Physical Therapy Inpatient Initial Evaluation Date: 03/15/2024 Referring Doctor: Benny Bangura MD PT Orders: PT CONSULT: Fall safety assessment Precautions: Fall. Standard. Activity as tolerated. Patient Profile/Admitting Diagnosis: is a 43-year-old male who presented to the ED on 03/14/2024 due to reports of double vision. Patient is admitted for CVA workup with working diagnosis of binocular vision disorder with diplopia, ataxia, polycythemia, hypertension, T2 DM, and hyperlipidemia. PMHX: All Active Problems Bilateral carpal tunnel syndrome (Acute) Tobacco use disorder (Acute) Rotator cuff tear, right (Acute) Numbness and tingling in both hands (Acute) Arthritis of right hip (Acute) History of breast cancer (Acute) 12/2020: Surgical/Radiation at [facility] in [facility]. -hb Social History/Home Situation: Lives with spouse in a private home with no steps to enter. [place] [employer]. Equipment Owned/DME: None Subjective: Seeing double still, same intensity as yesterday. Strength okay. Only limitation is his vision which affects how he moves. Could not see and focus well when head is not in neutral or at midline. Denied alcohol consumption more than he usually had the night prior. Asked if he could bring home a cane as he feels that it can help him walk better. Admitted that he has not been doing well with his food choices and his medication intake for his diabetes. Objective: General Observation: Resting in bed. Spouse present in room. Telemetry monitoring in place. Mental Status: Alert and oriented as to person, place, time, and purpose. Able to pay attention, focus, and respond appropriately. Pain: None reported. No headache reported. Vital Signs: Closely monitored by nursing staff ROM: Right Upper Extremity: Shoulder Flexion WFL. Shoulder abduction WFL. Elbow flexion WFL. Wrist flexion WFL. Functional opening and closing of hand WFL. Left Upper Extremity: Shoulder Flexion WFL. Shoulder abduction WFL. Elbow flexion WFL. Wrist flexion WFL. Functional opening and closing of hand WFL. Right Lower Extremity: Hip flexion WFL. Hip abduction WFL. Knee flexion WFL. Ankle dorsiflexion WFL. Ankle plantarflexion WFL. Left Lower Extremity: Hip flexion WFL. Hip abduction WFL. Knee flexion WFL. Ankle dorsiflexion WFL. Ankle plantarflexion WFL. Strength: Right Upper Extremity: Shoulder flexors 5/5. Shoulder abductors 5/5. Elbow flexors 5/5. Elbow extensors 5/5. Geek Squad Agent strong. Left Upper Extremity: Shoulder flexors 5/5. Shoulder abductors 5/5. Elbow flexors 5/5. Elbow extensors 5/5. Geek Squad Agent strong. Right Lower Extremity: Hip flexors 5/5. Hip abductors 5/5. Knee flexors 5/5. Knee extensors 5/5. Ankle dorsiflexors 5/5. Ankle plantarflexors 5/5. Left Lower Extremity: Hip flexors 5/5. Hip abductors 5/5. Knee flexors 5/5. Knee extensors 5/5. Ankle dorsiflexors 5/5. Ankle plantarflexors 5/5. Bed Mobility/Transfers: Rolling independent Supine to sit independent Sit to supine independent Sit to stand independent Stand to sit independent Gait: 250 feet without AD. Minimal path deviation with tendency to drift to L side, more pronounced when turning to L. gait speed decreased. Steps hesitant but no LOB. No SOB. Balance: Static Sitting: Normal Dynamic Sitting: Normal Static Standing: Normal Dynamic Standing: Good Special Tests: Mobility Limitations Standardized Measure [facility] 6 clicks Basic Mobility Inpatient Short Form: Raw Score: 24 CMS Score: 0% deficit Pronator Drift: Mild, short-lived drift noted on L UE but patient was able to self-correct Rapid alternating movement to B UE/LE: Intact 4-stage Balance Test: Feet together 10 seconds Semi-tandem 10 seconds Full tandem 10 seconds One-legged stance 10 seconds Romberg Test: Negative 30-Second Chair Rise Score: 15x Informed Consent/Education: Patient was instructed in purpose of PT consult and plan of care. Agreeable to proceed with established PT POC to achieve personal goals. Assessment: Double vision decreased ability to focus especially with head turned away from midline/neutral. Patient only required supervision for all mobility ADL performance but task speed has slowed due to inability to focus. Gait speed decreased. Extra cautious, with mild path deviation that is more pronounced during directional change to the L. Strength symmetrically normal. Sensation to B UE/LE intact. Patient presents with clinical signs and symptoms consistent with current/admitting diagnoses that have resulted to mobility limitations, gait instability, generalized weakness, and overall ADL decline as demonstrated by the following impairment level findings: 1. Impaired activity tolerance 2. Shortness of breath 3. Impaired dynamic standing balance 4. Double vision since admission yesterday (of same intensity) 5. Decreased ability to focus on object Impairments are contributing to the following functional limitations: 1. Decline in ambulation with ambulation 2. Increased completion time for mobility ADL performance 3. Increased risk for falls 4. Path deviation exacerbated with directional change Patient is assessed as a 45355 low complexity based on the following: History: 43-year-old male with past medical history as indicated above Examination: Demonstrable impairment in strength, balance, and mobility level with underlying impairments and functional limitations as exhibited above Presentation: Evolving Decision Makin low complexity Goals: Goals X1 week 1. Supine-Sit independent 2. Sit-Supine independent 3. Sit-Stand independent 4. Stand-Sit independent with no AD 5. Bed-Chair independent with no AD 6. Chair-Bed independent with no AD 7. Independent gait on level surface with use of no AD for at least 300 feet without report of pain nor dyspnea 8. Independent with home exercise program 9. Normal static and dynamic standing balance/tolerance Plan of Care/Treatment Plan: 1-2x/day, 7 days/week x 1 week. Plan of care has been reviewed with the FIREPOT OPERATOR AND TENDER providing the service under Physical Therapy direction. Initiate Physical Therapy intervention for pain management as needed, strengthening, bed mobility, transfers, gait, stairs, balance training, and use of assistive device. DISCHARGE RECOMMENDATIONS: Home with no services [] [] Home with services [specify] [] Home with outpatient PT [] [] SNF for continued rehabilitation [] [] Pooling Operator Care [] [] SNF versus LTC based on ability to participate and progress [] [X] OP PT to regain previuus ability to perform ambulation on all floor and ground services per PLOF without assistive device TREATMENT CODE/TIME: 04185 x 25 minutes for 1 unit (10:12?10:17). Thank you for the opportunity to participate in the care of this patient. Vandana King PT, DPT, CLT [facility] [place], [place]
[2024-03-15] MEDS: Empaglifozin 10 MG TAB PO (10:51)
[2024-03-15 11:17] VITALS: BP 132/81; PULSE 64; RESP 17; TEMP 37.1; O2SAT 93
[2024-03-15] MEDS: Acetaminophen 325 MG TAB PO ×2 (11:40→21:57)
--- NOTE | 2024-03-15 13:21 | PHA.REVIEW2 ---
Pharmacy Admission Review Admission Clinical Review Admission Pharmacy Review: Discharge planning issues (Acute) On deep vein thrombosis (DVT) prophylaxis (Acute) Polycythemia (Acute) Ataxia due to acute cerebrovascular disease (Acute) Binocular vision disorder with diplopia (Acute) No Known Allergies Allergy (Unverified 03/14/24 14:48) Resuscitation Status Full Code Height 6 ft 1 in Weight 115.666 kg Pharmacy Admission Review Renal Dosing Renal Dosing: BUN 16 mg/dL (7-18) 03/15/24 05:40 Creatinine 0.8 mg/dL (0.70-1.30) 03/15/24 05:40 Medications needing adjustments: Reviewed (CrCl 160.28 mL/min) List of meds needing interventions: Current medications are okay Anticoagulation Anticoagulation: Hgb 17.4 g/dL (13.5-17.5) 03/15/24 05:40 Hct 50.8 % (40.0-50.0) H 03/15/24 05:40 Plt Count 244 10^3/uL (130-400) 03/15/24 05:40 INR 1.1 (0.9-1.1) 03/14/24 16:06 Creatinine 0.8 mg/dL (0.70-1.30) 03/15/24 05:40 DVT Prophylaxis: Reviewed (Hgb decreased from 18.3) Medications: Heparin (q8h) Relevant Labs Relevant Labs: ESR 3 mm/hr (0-15) 03/14/24 15:35 Sodium 139 mmol/L (136-145) 03/15/24 05:40 Potassium 3.7 mmol/L (3.5-5.1) 03/15/24 05:40 Chloride 104 mmol/L (98-107) 03/15/24 05:40 Magnesium 2.2 mg/dL (1.8-2.4) 03/15/24 05:40 Electrolytes, C-Reactive P, ESR: Reviewed DM Control DM Control: Glucose 144 mg/dL (74-106) H 03/15/24 05:40 Hemoglobin A1c 7.8 % (<5.7) H 03/14/24 15:35 Finger Stick Blood Glucose 153 1201 Finger Stick Blood Glucose 153 1143 Finger Stick Blood Glucose 153 1143 Finger Stick Blood Glucose 177 0837 Finger Stick Blood Glucose 177 0834 Finger Stick Blood Glucose 177 0834 DM Control: Reviewed Insulin Dosing, Diabetic Medication: Patient has order for SS insulin and Jardiance. Home metformin is on hold at this time. Cardiac Review BP, HR, EF%: Reviewed (HR and BP WNL) QTc Review QTc: Reviewed (411 from 03/14/24) IV to PO Switch IV Medications: Reviewed Home Meds Home Med List reviewed: Reviewed Relevent Home Meds Not ordered & why?: lisinopril (on hold for permissive HTN per H+P), loratadine and metformin (on hold per H+P) Current Meds Current Medication Order Review: Reviewed
[2024-03-15 15:13] VITALS: BP 113/82; PULSE 63; RESP 17; TEMP 36.5; O2SAT 96
--- NOTE | 2024-03-15 16:57 | CHAPLAIN ---
I met and his girlfriend Luz. I introduced myself, explained my role and offered support. He was admitted for a possible stroke after experiencing double vision.
--- NOTE | 2024-03-15 18:49 | NUR.NOTE ---
Nursing Note:I have reviewed the daily documentation for this patient, including auxiliary assessments, and agree with this documentation.
[2024-03-15 21:33] VITALS: BP 117/82; PULSE 70; RESP 16; TEMP 36.6; O2SAT 96
[2024-03-15] MEDS: Rosuvastatin 10 MG TAB 20 MG PO (21:43)
--- NOTE | 2024-03-16 | DI.CT_ITS ---
Exam(s) CT PELVIC W EXAM: CT PELVIC W CLINICAL HISTORY: Right mid brain lacunar infarct and PFO. TECHNIQUE: Imaging Protocol: Axial computed tomography images with coronal and sagittal reformatted images were created and reviewed. CONTRAST MATERIAL: Intravenous: Omnipaque 350 Contrast volume:85 mL contrast route:IV - Oral: no COMPARISON: No exams were available for comparison FINDINGS: Bladder: No gross wall thickening. No stones.No evidence of mass. Bowel: No obstruction or bowel wall thickening. Appendix normal. Peritoneal cavity: No ascites, collection or mesenteric inflammatory response. Reproductive: Unremarkable. Vasculature: No evidence of aortic or iliac artery aneurysm. mild atherosclerotic changes. No thro mbus visible within iliac veins or IVC. Bones: No acute findings. Soft tissues: No acute findings. IMPRESSION: Normal CT scan of the pelvis. No thrombus visible with in pelvic veins. RADIATION DOSE DELIVERED: Total DLP DATA REPOSITORY: All CT scans at this facility are submitted to the National Radiology Data Registry (NRDR) Dose Index Registry (DIR) with the [employer] (ACR). RADIATION OPTIMIZATION: All CT scans at this facility use at least one of these dose optimization te chniques: automated exposure control; mA and/or kV adjustment per patient size (includes targeted exa ms where dose is matched to clinical indication); or iterative reconstruction.
--- NOTE | 2024-03-16 | DI.US_ITS ---
Exam(s) US EXTREMITY VENOUS BI EXAM: US EXTREMITY VENOUS BI CLINICAL HISTORY: Right Mid-brain lacunar infarct PFO. TECHNIQUE: Bilateral lower extremity venous ultrasound performed using grayscale, color-flow, and sp ectral Doppler analysis. COMPARISON: No exams were available for comparison FINDINGS: The bilateral common femoral, femoral and popliteal veins demonstrate normal compressibility, augment ation, and color Doppler. The posterior tibial peroneal veins are patent. IMPRESSION: Right: Negative for DVT Left: Negative for DVT DATA REPOSITORY:
[2024-03-16 03:28] VITALS: BP 122/74; PULSE 64; RESP 16; TEMP 36.6; O2SAT 95
[2024-03-16] MEDS: Clopidogrel 75 MG TAB PO (08:15)
[2024-03-16] MEDS: Aspirin 81 MG CHEW PO (08:15)
[2024-03-16] MEDS: Normal Saline Flush 10 ML SYR IVP (08:15)
[2024-03-16] MEDS: Empaglifozin 10 MG TAB PO (08:15)
--- NOTE | 2024-03-16 08:34 | PTTR_ITS ---
PT Notes Visit Reasons: Acute diplopia Physical Therapy Inpatient Treatment Note Date: 03/17/2024 Precautions: Fall. Standard. Activity as tolerated. Subjective: [place] that he has a bit better control with focusing on object. Walking still felt different. No headache reported. Objective: General Observation: Resting in bed. Mental Status: Alert and oriented as to person, place, time, and purpose. Able to pay attention, focus, and respond appropriately. Pain: None reported. No headache reported. Vital Signs: Closely monitored by nursing staff Bed Mobility/Transfers: Rolling independent Supine to sit independent Sit to supine independent Sit to stand independent Stand to sit independent Gait: 250 feet without AD. Minimal path deviation with tendency to drift to L side, more pronounced when turning to L. gait speed decreased. Steps hesitant but no LOB. No SOB. Balance: Static Sitting: Normal Dynamic Sitting: Normal Static Standing: Normal Dynamic Standing: Good NEURO RE-ED: Facilitated performance of extraocular muscle strengthening utilizing exercises and convergence activities to increase focus and improve vision as well as ambulation skills: -- Jump convergence strategies using a highlighter x 5 -- Smooth Convergence/Pen-to-nose convergence/Pencil push up using a highlighter x 5 -- Cardinal point exercises x 5 -- Eye Rolling x 5 -- Eye Swings x 5 ASSESSMENT: L Superior Rectus muscle: weak L Medial Rectus: weak L Inferior Rectus:weak L Inferior Oblique: weak L Levator palpebrae superirioris: weak R Superior Rectus muscle: weak R Medial Rectus: weak R Inferior Rectus:weak R Inferior Oblique: weak R Levator palpebrae superirioris: weak Double vision decreased ability to focus especially with head turned away from midline/neutral. Patient only required supervision for all mobility ADL performance but task speed has slowed due to inability to focus. Gait speed decreased. Extra cautious, with mild path deviation that is more pronounced during directional change to the L. Strength symmetrically normal. Sensation to B UE/LE intact. Goals: Goals X1 week 1. Supine-Sit independent 2. Sit-Supine independent 3. Sit-Stand independent 4. Stand-Sit independent with no AD 5. Bed-Chair independent with no AD 6. Chair-Bed independent with no AD 7. Independent gait on level surface with use of no AD for at least 300 feet without report of pain nor dyspnea 8. Independent with home exercise program 9. Normal static and dynamic standing balance/tolerance Plan of Care/Treatment Plan: 1-2x/day, 7 days/week x 1 week. Plan of care has been reviewed with the MATERIAL DAMAGE APPRAISER providing the service under Physical Therapy direction. Initiate Physical Therapy intervention for pain management as needed, strengthening, bed mobility, transfers, gait, stairs, balance training, and use of assistive device. DISCHARGE RECOMMENDATIONS: [] Home with no services [] [] Home with services [specify] [] Home with outpatient PT [] [] SNF for continued rehabilitation [] [] Fdc Care [] [] SNF versus LTC based on ability to participate and progress [] [X] OP PT to regain previuos ability to perform ambulation on all floor and ground services per PLOF without assistive device TREATMENT CODE/TIME: 53990 x 34 minutes for 2 units (8:34?9:08).
[2024-03-16 09:00] LABS: Anion Gap 9.7 mmol/L (3-11); BUN 18 mg/dL (7-18); CO2 26.3 mmol/L (21.0-32.0); CREATININE 0.8 mg/dL (0.70-1.30); Calcium 8.8 mg/dL (8.5-10.1); Chloride 104 mmol/L (98-107); Estimated GFR 113.32 (mL/min/1.73m2); Glucose 164 mg/dL (74-106); Magnesium 2.3 mg/dL (1.8-2.4); Potassium 4.1 mmol/L (3.5-5.1); Sodium 140 mmol/L (136-145)
[2024-03-16 09:08] VITALS: BP 119/75; PULSE 57; RESP 15; TEMP 35.8; O2SAT 96
--- NOTE | 2024-03-16 09:31 | W.PM.DS.N ---
Date of service: 03/16/24 Time of Service: 09:32 DS: Diagnosis Discharge Diagnosis (1) Binocular vision disorder with diplopia: Status: Acute (2) Lacunar infarct, acute: Status: Acute (3) Ataxia due to acute cerebrovascular disease: Status: Acute (4) Polycythemia: Status: Acute (5) HTN (hypertension): Status: Chronic (6) Type 2 diabetes mellitus: Status: Chronic (7) Hyperlipidemia: Status: Chronic (8) On deep vein thrombosis (DVT) prophylaxis: Status: Acute (9) Discharge planning issues: Status: Acute Discharge Plan Disposition Patient Disposition: Home W/Home Health Services Condition: Improving Discharge Details Reason For Visit: Acute diplopia Admit Date/Time: 03/14/24 23:13 Admit Provider: Baudilio Soto Attending Provider: Baudilio Soto Primary Care Provider: Jesus Calvo Hospital Course Hospital Course: This 44 years old male patient with past medical history of type 2 diabetes presented to the ED at [facility] on 03/14/2024 with complaint of double vision. The patient reported initial change in vision while he was taking a shower the morning of presentation around 7 AM. The patient was washing his face, closed his eyes and upon reporting the eyes he was experiencing double vision. Initially no complaints of headache but later right parietal headache developed. Symptoms persisted through the morning which prominent to him to seek medical attention. The patient wore glasses for visual correction and stated that with his eye open he was experiencing blurry and double vision but self-correct when he closes 1 or the other eye. The patient presented to the ED with stable vital signs. The patient denied recent trauma, illness, fever, tingling, numbness, shortness of breath, chest pain recent chiropractic manipulation of his neck, history of stroke. The patient reports compliance to medicine. Workup in the ED showed a negative CT of the head and negative CTA of head and neck. Blood work was unremarkable. The ED provider consulted with [facility] which recommended admission for MRI and initiation of stroke protocol with Plavix load, aspirin load, continuation of home Crestor. The hospitalist was consulted and patient admitted to the medical surgical floor for evaluation and management of diplopia and probable microvascular ischemic stroke. During the stay management with daily Plavix 75 mg and ASA 81 mg orally was continued. MRI showed lacunar infarct of the right midbrain. Follow-up consultation with [facility] teleneurology completed with the following recommendations to continue Plavix 75 mg orally for 3 weeks and aspirin 81 mg orally indefinitely, increasing Crestor doses to 20 mg orally, discussion of optimal control of her diabetes with primary care practitioner, physical therapy for gait and visual therapy for eye movement exercise and adjustment, Zio patch for 2 weeks as an outpatient to rule out cardioembolic etiology and follow-up with neurology and ophthalmology to address double vision and prism glasses option. An echocardiogram with bubble was completed with LV EF of 58% without segmental wall motion abnormality but during the Valsalva maneuver there was a probability of a small patent foramen ovale with minimal right to left shunt with recommendation for EDITH. RoPe score and ALLYSON classification not indicative of the need for PFO closure at this time. As per discussion with Dr. Cordon from tele-neurology at [facility], bilateral leg ultrasound and pelvis imaging were completed without findings of DVT. An outpatient referral in cardiology has been completed. The patient remained in a sinus rhythm during the stay as per telemetry readings with stable vital signs. Antihypertensive medicine were held to allow for permissive hypertension; vital signs remained stable.Patient can resume his home drug regimen. Today the patient will be discharged home outpatient physical therapy for gait and visual therapy with eye movement exercise. Referrals for neurology, ophthalmology and cardiology were completed. The patient will have to follow-up with his primary care practitioner within 7 days of discharge. Discussed with Dr. Bangura Home Meds and New Rx's Prescriptions: New clopidogrel [Plavix] 75 mg tablet 75 mg PO DAILY Qty: 19 0RF aspirin 81 mg tablet,delayed release (DR/EC) 81 mg PO DAILY Qty: 30 0RF Continued Jardiance 10 mg tablet 10 mg PO DAILY lisinopril 5 mg tablet 5 mg PO DAILY metformin 500 mg tablet 1,000 mg PO BID loratadine [Allerclear] 10 mg tablet 10 mg PO DAILY Changed rosuvastatin 10 mg tablet 20 mg PO DAILY Qty: 60 0RF Discharge Instructions Stand Alone Forms: Nursing Discharge Form Referrals: Bettie Iraheta MD [ [facility] STAFF PHYSICIAN] - (Lacunar infarct of the right mid-brain with small PFO findings w minimal right to left shunt on Valsalva Hx of DM II, HTN) Abbey Virgen [NURSE PRACTITIONER] - 03/22/24 11:00 am Mariana Luu [ NON-[facility] STAFF PHYSICIAN] - (S/p right mid-brain infarct with diplopia-) Melody Mejia DPT [DOCTOR OF PHYSICAL THERAPY] - (S/p lacunar infarct of the right mid-brain: physical therapy for gait and visual therapy for eye movement exercise and adjustment,) Catherine Burton MD [ [facility] STAFF PHYSICIAN] - (s/p right mid-brain acute infarct with diplopia) Activity:: Activity as Tolerated Equipment/Supplies:: No Equipment Needed Diet:: heart healthy diabetic Discharge Orders Discharge Orders: Discharge Order (Routine); Ordered 03/16/24 Ordered By: Loreto Upton Other Ambulatory Orders: 14 Day [facility] (Routine) Timeframe: 10 Day Facility: [facility] - Location: Respiratory Therapy Ordered By: Loreto Upton DS: Summary Time Spent with Patient providing and/or coordinating discharge services: Greater than 30 minutes Status at Discharge Functional status at discharge: uses cane/walker Overall status at discharge: patient is progressing back to baseline Mental Status: mental status grossly normal Speech and Movement: speech and movement normal Mood: congruent mood Affect: normal affect Quality:SDOH Health Related Social Needs: No Data to Display Exam Narrative Exam Narrative: Constitutional The patient is without acute distress and has an obese body habitus HENMT: Facial structures with normal appearance Eyes: Well aligned, intact ROM,ongoing intermittent diplopia with change in head position Neck: Normal ROM Neuro:alert and oriented to self, person, place, time and situation. No neurological focal deficit to extremities, improved gait Resp: Normal respiratory pattern, speaks in full sentences, unlabored breathing, clear lung bilaterally Cardio: Tele NSR HR 60-regular rhythm, S1, S2, no murmur Extremities: strength 5/5 to bilateral lower and upper extremities Psych: RASS 0, congruent mood and normal affect. Psych Mental Status: mental status grossly normal Speech and Movement: speech and movement normal Mood: congruent mood Affect: normal affect DS: Data Vitals/I&O Vitals and I&O: Vital Signs Temperature 35.8 C L 03/16/24 09:08 Temperature Source Temporal Artery Scan 03/16/24 09:08 Pulse 57 L 09/12/24 09:08 Pulse Rhythm Regular 03/15/24 00:40 Respiratory Rate 15 03/16/24 09:08 Respiratory Effort Normal 03/15/24 00:40 Respiratory Depth Normal 03/15/24 00:40 Respiratory Pattern Normal 03/15/24 00:40 Blood Pressure 119/75 03/16/24 09:08 Blood Pressure Position Sitting 03/14/24 14:45 Pulse Oximetry 96 03/16/24 09:08 Oxygen Delivery Method Room Air 03/16/24 09:08 Oxygen Flow Rate 0 03/16/24 09:08 Pain Level 0 03/16/24 09:08 Intake & Output 03/15/24 03/15/24 03/16/24 11:59 23:59 11:59 Weight 115.666 kg 108.998 kg Other: Urine Color Yellow Yellow Urine Appearance Clear Clear Urine Odor None Comment pT stated that he voided. Independent to bathroom Voiding Methods Toilet Toilet Toilet Data Completed and Pending Labs on day of discharge: Labs from last 24 hours 03/16/24 05:35 WBC Pending RBC Pending Hgb Pending Hct Pending MCV Pending MCH Pending MCHC Pending RDW Pending Plt Count Pending MPV Pending Immature Gran % Pending Neutrophils % Pending Lymphocytes % Pending Monocytes % Pending Eosinophils % Pending Basophils % Pending Absolute Neutrophils Pending Absolute Lymphocytes Pending Absolute Monocytes Pending Absolute Eosinophils Pending Absolute Basophils Pending Sodium Pending Potassium Pending Chloride Pending Carbon Dioxide Pending Anion Gap Pending BUN Pending Creatinine Pending Est GFR (CKD-EPI 2020) Pending Glucose Pending Calcium Pending Magnesium Pending PFSH All Active Problems (Updated 03/15/24 @ 14:40 by Loreto Upton APRN) Lacunar infarct, acute (Acute) Discharge planning issues (Acute) On deep vein thrombosis (DVT) prophylaxis (Acute) Polycythemia (Acute) Hyperlipidemia (Chronic) Type 2 diabetes mellitus (Chronic) HTN (hypertension) (Chronic) Ataxia due to acute cerebrovascular disease (Acute) Ataxic gait determined by examination (Acute) Binocular vision disorder with diplopia (Acute) Social History Smoking/Tobacco Use Status: Never Smoking risk assessment performed?: Yes Alcohol Intake: current Alcohol Intake frequency: a few times a month Drug use: Never Substance use type: does not use Housing: house Do you feel safe at home: Yes Do you feel safe in your relationship?: Yes Time Spent with Patient Time Spent with Patient: >85 minutes Time was spent: preparing to see the patient(eg.review tests), obtaining and/or reviewing separately otained hiistory, ordering medications,tests, procedures, referring, communicating with other health healthcare facility administrator, indepentently interpreting results, counseling the patient and care coordination
[2024-03-16 10:20] LABS: Abs Immature Grans 0.02 10^3/uL (0.0-0.06); Absolute Basophil Count 0.07 10^3/uL (0.0-0.2); Absolute Eosinophil Count 0.13 10^3/uL (0.0-0.7); Absolute Lymphocyte Count 1.54 10^3/uL (1.2-3.4); Absolute Neutrophil Count 2.77 10^3/uL (1.2-6.7); Basophils % 1.4 %; Eosinophils % 2.6 %; HGB 17.1 g/dL (13.5-17.5); Immature Grans % 0.4 %; Lymphocytes % 30.6 %; MCH 30.4 pg (27.0-33.0); MCHC 34.2 % (32.0-36.0); MCV 89 fL (80-95); MPV 9.9 fL (8.0-11.0); Monocytes % 9.9 %; Neutrophils % 55.1 %; Platelet Count 238 10^3/uL (130-400); RBC 5.63 10^6/uL (4.36-5.78); RDW 12.1 % (11.8-14.1); RDW-SD 39.8 fL; WBC 5.03 10^3/uL (4.4-10.8)
[2024-03-16] MEDS: Insulin Aspart 300 UNITS/3 ML PEN SC ×2 (10:36→12:39)
[2024-03-16 11:23] VITALS: BP 135/77; PULSE 65; RESP 17; TEMP 36.5; O2SAT 97
[2024-03-16] MEDS: Normal Saline - Diluent 50 ML VIAL IJ (13:49)
[2024-03-16] MEDS: Omnipaque 350 MG/ML 500 ML BTL-Imaging package IJ (13:49)
--- NOTE | 2024-03-16 16:48 | PDOC.CMDIS ---
Date of service: 03/16/24 Time of Service: 13:00 LACE Index Scoring Tool Questions: Length of Stay (in days): 2 Was the patient admitted via the E.D.?: Yes Comorbidities: Cerebrovascular Disease E.D. Visits: 1 Answers: Total Score: 7 Risk of Readmission: Low Risk Care Management Discharge Plan Reason for Hospitalization: ataxia due to acute cerebrovascular disease Discharge Plan: is discharged home with new orders for consults with neurology, cardiology, ophthalmology, PT and his own PCP. He was given a return to work note to keep him out of work until he sees his PCP on 03/22/24. He will continue per his discharge plan as prescribed. He will transport home via private vehicle with his fiance. Patient/Family Education Needs: Review of discharge instructions, activity, limitations and f/u plan, and discuss ask me 3 SDOH Health Related Social Needs: No Data to Display
--- NOTE | 2024-03-17 15:04 | PDOC.CMPRO ---
Date of service: 03/17/24 Time of Service: 15:04 Care Management Progress Note Progress Note Text Progress Note Text: CM received a call from Dallin [employer]. Dallin's discharge instructions were to increase his rosuvastatin from 10mg to 20mg, but [facility] did not receive this script. As Dallin's provider is not working today, this was deferred to PCP at [facility] by CM. This increase in dose was clearly documented in the discharge summary, CM confirmed that PCP had the summary. CM called Luz to let her know what was done and encouraged her to check in with PCP office regarding the status of the script. SDOH(Care Management) Screening Will the Patient Participate in the Screening?: Yes Do you worry about having a steady place to live?: no Problems where you live: no known problems In the past 12 months, have you had to go without electric, gas, oil or water in your home?: no Have you or anyone in your house had to go without enough food to eat?: no Has lack of transportation kept you from medical appointments or from doing things needed for daily living?: no Has anyone in your support network made you feel unsafe for any reason?: no
--- NOTE | 2024-04-17 08:30 | NUR.NOTE ---
Nursing Note: I accessed this chart because I was asked by Dr. Beebe to review nursing documentation and triage.
== END 2024-03-16 14:38 | disposition home health service (06) ==
LOC: ER 03-15 00:17 → MS 03-15 00:33
PROVIDERS: Nurse Practitioner Acute Care; Admitting Provider Family Medicine; Emergency Provider Emergency Medicine; PCP Internal Medicine; Visit Provider Family Medicine
DX: I63.81 Other cerebral infarction due to occlusion or stenosis of small artery (principal); H53.2 Diplopia; R27.8 Other lack of coordination; I10 Essential (primary) hypertension; D75.1 Secondary polycythemia; E11.9 Type 2 diabetes mellitus without complications; E78.2 Mixed hyperlipidemia; Z79.899 Other long term (current) drug therapy; Z79.84 Long term (current) use of oral hypoglycemic drugs; Q21.12 Patent foramen ovale
CPT/HCPCS: 00123; 36415; 36416; 70496; 70498; 70553; 80048; 80053; 80061; 82962; 85027; 85652; 93005; 96372; 97112; 97161; 99291; 72193; 83036; 83735; 84443; 84484; 85025; 85610; 93010; 93306; 93970; 99223; 99232; 99239; G0378; J1644; J1815; J3490

== ENCOUNTER 2024-04-10 09:02 | Outpatient (CLI) | payer BC, SELFPAY | END 2024-04-10 09:03 | disposition home or self-care (01) | PROVIDERS: PCP Nurse Practitioner Family; Visit Provider Nurse Practitioner Acute Care | DX: I63.81 Other cerebral infarction due to occlusion or stenosis of small artery (principal) | CPT/HCPCS: 93246 ==

== ENCOUNTER 2024-05-02 11:55 | Outpatient (CLI) | payer BC, SELFPAY ==
--- NOTE | 2024-05-02 12:33 | W.CARDEVENT ---
Date of service: 05/02/24 Time of Service: 12:33 Cardiac Event Recorder Referring Provider:: Loreto Upton Indications:: Stroke Cardiac Event Note: This is a cardiac event monitor. Patient was monitored for 13 days and 12 hours Rhythm throughout was sinus with an average heart rate of 67. Minimum was 41, maximum 164 There were rare isolated atrial and ventricular ectopic beats There was no atrial fibrillation, no high-grade block, no pauses greater than 3 seconds No symptoms were reported
== END 2024-05-02 11:56 | disposition home or self-care (01) ==
LOC: CARDOPNVT 11:55
PROVIDERS: PCP Nurse Practitioner Family; Visit Provider Internal Medicine Cardiovascular Disease
DX: I63.81 Other cerebral infarction due to occlusion or stenosis of small artery (principal)

== ENCOUNTER 2024-06-27 16:19 | Outpatient (REF) | payer BC, SELFPAY ==
--- OUTSIDE RECORDS SUMMARY | 2024-06-27 16:20 | XMS_ITS | Clinical Summary ---
Author Organization [facility] Address [address] [place] [address] Care Team Providers Care Cryogenic Transport Driver Name Role Phone Unknown, Provider MD Primary Care Provider Unava ilable Social History Tobacco Use Types Packs/Day Years Used Date Smoking Tobacco: Never Assessed Interpersonal Safety Answer Date Record ed Physically Hurt Never 02/05/2020 Verbally Threaten Not on file 02/05/2020 Sex and Gender Information Value Date Recorded Sex Assigned at Not on file Legal Sex Male 14:02 EDT Gender Identity Not on file Sexual Orientation Not on file Plan of Treatment Health Maintenance Due Date Last Done Comments Hepatitis C Screen 1981 Hepatitis B Vaccine (1 of 3 - 19+ 3-dose series) 07/25 COVID-19 Vaccine ( season) 2024 Care Teams Cryogenic Transport Driver Relationship Specialty Start Date End Date Unknown, Provider, PCP - General 04/13/18
--- OUTSIDE RECORDS SUMMARY | 2024-06-27 16:20 | XMS_ITS | Referral Summary ---
Author Organization [facility] Address [address] [place] [address] Care Team Providers Care Loading Dock Hand Name Role Phone Unknown, Provider Primary Care Provider Unava ilable Social History [...] Orientation Not on file Plan of Treatment Not on file Care Teams Loading Dock Hand Relationship Specialty Start Date End Date Unknown, Provider, PCP - General 04/13/18
--- OUTSIDE RECORDS SUMMARY | 2024-06-27 16:20 | XMS_ITS | Encounter Summary ---
Author Organization [facility] Address [address] [place] [address] Care Team Providers Care Briar Shop Supervisor Name Role Phone Unavailable Primary Care Provider Unavailabl e Encounter Details Date Type Department Care Team (Late st Contact Info) Description 03/30/2018 14:03 EDT - 03/30/2018 23:59 EDT Hospital Encounter [facility] - Other [address] [place] [address] Rene Kerr MD [address] [facility] [address] [place] [id number] Discharge Disposition: Auto Discharge Social History Tobacco Use Types Packs/Day Years Used Date Smoking Tobacco: Never Assessed Sex and Gender Information Value Date Recorded Sex Assigned at Not on file Legal Sex Male 14:02 EDT Gender Identity Not on file Sexual Orientation Not on file documented as of this encounter Discharge Diagnoses Diagnosis Z00.00 Encounter for general adult medical examination without abnormal findings-Z00.00[ICD-10-CM] documented in this encounter Discharge Disposition Disposition Code Departure Means Destination Auto Discharge Home documented in this encounter Plan of Treatment Not on file documented as of this encounter Visit Diagnoses Not on filedocumented in this encounter
[2024-06-27 17:20] LABS: ALT 61 U/L (16-63); AST 26 U/L (15-37); Albumin 4.4 g/dL (3.4-5.0); Alkaline Phosphatase 49 U/L (46-116); Anion Gap 12.6 mmol/L (3-11); BUN 20 mg/dL (7-18); Bilirubin, Total 0.45 mg/dL (0.2-1.0); CO2 25.4 mmol/L (21.0-32.0); CREATININE 1.1 mg/dL (0.70-1.30); Calcium 9.4 mg/dL (8.5-10.1); Calculated LDL 61 mg/dL (<100); Chloride 107 mmol/L (98-107); Cholesterol 119 mg/dL (<200); Estimated GFR 85.95 (mL/min/1.73m2); Glucose 152 mg/dL (74-106); HDL Cholesterol 37 mg/dL (40-60); Potassium 4.4 mmol/L (3.5-5.1); Sodium 145 mmol/L (136-145); Total Protein 7.5 g/dL (6.4-8.2); Triglyceride 109 mg/dL (<150)
[2024-06-27 17:38] LABS: Hemoglobin A1C 6.4 % (<5.7)
== END 2024-06-27 16:20 | disposition home or self-care (01) ==
LOC: NCHCN 16:19
PROVIDERS: PCP Nurse Practitioner Family; Visit Provider Nurse Practitioner Family
DX: I67.9 Cerebrovascular disease, unspecified (principal); E11.8 Type 2 diabetes mellitus with unspecified complications
CPT/HCPCS: 80053; 80061; 83036

== ENCOUNTER 2024-07-20 21:08 | Outpatient (REF) | payer BC, SELFPAY ==
[2024-07-20 17:35] LABS: COMMENT (LAB VIEW ONLY) 88.07 mg/dL; Microalb ug/mg Crea 15.1 ug/mg Cr
== END 2024-07-20 21:09 | disposition home or self-care (01) ==
LOC: NCHCN 21:08
PROVIDERS: PCP Nurse Practitioner Family; Visit Provider Nurse Practitioner Family
DX: E11.9 Type 2 diabetes mellitus without complications (principal)
CPT/HCPCS: 82043; 82570

== ENCOUNTER 2024-08-08 08:33 | Emergency (ER) | payer BC, SELFPAY ==
[2024-08-08] VITALS (35 sets, daily range): BP systolic 118–161; BP diastolic 61–125; PULSE 55–154; RESP 0–23; TEMP 36.2–37; O2SAT 92–100
--- NOTE | 2024-08-08 08:30 | RT.EKG_ITS ---
APPROVED REPORT Exam: Resting ECG Reason for Exam: CVA Patient Location: E HR:77 bpm ECG Measurements Heart Rate 77 AXIS WY 174 P 55 QRSd 119 QRS 34 QT 385 T 54 QTc 436 Conclusion Sinus rhythm, rate 77 DIMA pattern, unchanged from priors No STEMI IVCD
--- NOTE | 2024-08-08 08:45 | DI.RAD_ITS ---
Exam(s) XR CHEST 2V PA LATERAL EXAM: XR CHEST 2V PA LATERAL CLINICAL HISTORY: weakness TECHNIQUE: 2D digital imaging was performed. Two views. COMPARISON: CR CHEST 2 VIEWS PA,LAT from 02/07/2008 FINDINGS: HEART: Normal size. Aorta: Not dilated. PULMONARY VASCULATURE: Normal. MEDIASTINUM: Unremarkable. LUNGS: Clear. PLEURAL SPACE: No pleural effusion or pneumothorax. BONE:Unremarkable for age. SOFT TISSUES: Unremarkable. IMPRESSION: No acute abnormality. DATA REPOSITORY: RADIATION DOSE DELIVERED:
--- NOTE | 2024-08-08 08:45 | DI.CT_ITS ---
Exam(s) CT BRAIN NECK CTA EXAM: CT BRAIN NECK CTA CLINICAL HISTORY: dizziness, ataxia, ALLEN. TECHNIQUE: Imaging Protocol: Axial CT angiography was performed with multi-slice acquisition and mu lti-planar and MIP reconstructions. CONTRAST MATERIAL: Intravenous: Omnipaque 350 Contrast volume:70 ml COMPARISON: CT CT BRAIN NECK CTA from 03/14/2024 FINDINGS: CT Head W/O and W contrast: Ventricles and Extra axial spaces: Normal in size and morphology for the patient's age. Hemorrhage: None. Cerebral parenchyma: No evidence of acute infarct or mass. Midline shift: None. Brainstem/Cerebellum: No acute findings.. Calvarium: Normal. Visualized Paranasal sinuses/Mastoids: Clear. Soft Tissues: Unremarkable. Enhancement: Normal. CTA Brain W: Internal Carotid Arteries: Petrous: Normal. Cavernous: Normal. Cerebral: Normal. Middle Cerebral Arteries: Right: No aneurysm, occlusion or significant stenosis. Left: No aneurysm, occlusion or significant stenosis. Anterior Cerebral Arteries: Right: No aneurysm, occlusion or significant stenosis. Left: No aneurysm, occlusion or significant stenosis. Posterior cerebral Arteries: Right: No aneurysm, occlusion or significant stenosis. Left: No aneurysm, occlusion or significant stenosis. Vertebral Arteries: Right: No aneurysm, occlusion or significant stenosis. Left: No aneurysm, occlusion or significant stenosis. Basilar Artery: No aneurysm, occlusion or significant stenosis. CTA Neck W: Common Carotid: Right: No dissection, occlusion or significant stenosis. Left: No dissection, occlusion or significant stenosis. External Carotid: Right: No dissection, occlusion or significant stenosis. Left: No dissection, occlusion or significant stenosis. Internal Carotid: Right: No dissection, occlusion or significant stenosis. Left: No dissection, occlusion or significant stenosis. Vertebral Artery: Right: No dissection, occlusion or significant stenosis. Left: No dissection, occlusion or significant stenosis. Lung Apices: No acute findings. Bones: No acute abnormality. Soft Tissues: Normal. IMPRESSION: 1. CTA brain: Normal CTA examination of the [place] of [place]. 2. Head CT: Unremarkable CT Head. 3. CTA neck: Normal CTA examination of the neck. No atherosclerotic disease is visible. RADIATION DOSE DELIVERED: Total DLP DATA REPOSITORY: All CT scans at this facility are submitted to the National Radiology Data Registry (NRDR) Dose Index Registry (DIR) with the [employer] (ACR). RADIATION OPTIMIZATION: All CT scans at this facility use at least one of these dose optimization te chniques: automated exposure control; mA and/or kV adjustment per patient size (includes targeted exa ms where dose is matched to clinical indication); or iterative reconstruction.
[2024-08-08] MEDS: Normal Saline - Diluent 50 ML VIAL IJ (08:55)
[2024-08-08] MEDS: Omnipaque 350 MG/ML 500 ML BTL-Imaging package 70 ML IJ (08:56)
[2024-08-08 09:03] LABS: Abs Immature Grans 0.01 10^3/uL (0.0-0.06); Absolute Basophil Count 0.07 10^3/uL (0.0-0.2); Absolute Eosinophil Count 0.12 10^3/uL (0.0-0.7); Absolute Lymphocyte Count 1.64 10^3/uL (1.2-3.4); Absolute Monocyte Count 0.69 10^3/uL (0.1-0.8); Absolute Neutrophil Count 4.04 10^3/uL (1.2-6.7); Basophils % 1.1 %; Eosinophils % 1.8 %; HCT 50.8 % (40.0-50.0); HGB 17.6 g/dL (13.5-17.5); Immature Grans % 0.2 %; MCH 30.7 pg (27.0-33.0); MCHC 34.6 % (32.0-36.0); MCV 89 fL (80-95); MPV 10.3 fL (8.0-11.0); Monocytes % 10.5 %; Neutrophils % 61.4 %; Platelet Count 220 10^3/uL (130-400); RBC 5.73 10^6/uL (4.36-5.78); RDW 12.4 % (11.8-14.1); RDW-SD 40.5 fL; WBC 6.57 10^3/uL (4.4-10.8)
--- NOTE | 2024-08-08 09:30 | DI.MRI_ITS ---
Exam(s) MR BRAIN WO EXAM: MR BRAIN WO CLINICAL HISTORY: ataxia, ALLEN, neg cta TECHNIQUE: Multiplanar multisequence MRI of the brain was performed. COMPARISON: MR MR BRAIN WO/W from 03/15/2024 FINDINGS: VENTRICLES AND EXTRA AXIAL SPACES: Normal in size and morphology for the patient's age. MIDLINE SHIFT: None. CEREBRAL PARENCHYMA: No focus of restricted diffusion to suggest acute infarct. No space-occupying le alyssa identified. BRAINSTEM/CEREBELLUM: No change in tiny bilateral CSF signal lesions of both cerebral hemispheres cou ld indicate old lacunar infarcts. VISUALIZED PARANASAL SINUSES: Clear. MASTOIDS:Clear. Vasculature: Normal flow void. PITUITARY GLAND: Unremarkable. ORBITS: Unremarkable. IMPRESSION: No acute abnormality. DATA REPOSITORY:
[2024-08-08 09:32] LABS: ALT 70 U/L (16-63); AST 22 U/L (15-37); Albumin 4.6 g/dL (3.4-5.0); Alkaline Phosphatase 47 U/L (46-116); Anion Gap 10.6 mmol/L (3-11); BUN 13 mg/dL (7-18); Bilirubin, Total 0.87 mg/dL (0.2-1.0); CO2 26.4 mmol/L (21.0-32.0); Calcium 9.4 mg/dL (8.5-10.1); Chloride 104 mmol/L (98-107); Estimated GFR 95.77 (mL/min/1.73m2); Glucose 165 mg/dL (74-106); Sodium 141 mmol/L (136-145); Total Protein 7.6 g/dL (6.4-8.2); Troponin I 12 ng/L (<or=76)
[2024-08-08 10:15] LABS: Troponin I 10 ng/L (<or=76)
[2024-08-08 11:34] LABS: Influenza A PCR Negative (Negative); Influenza B PCR Negative (Negative); RSV PCR Negative (Negative)
[2024-08-08 11:35] LABS: Source Nasopharynx
[2024-08-08 11:36] LABS: COVID-19 PCR Negative (Negative)
--- NOTE | 2024-08-08 12:07 | ED.GENADUL_ITS ---
Discharge Plan Disposition Patient Disposition: Home Condition: Stable Discharge Details Clinical Impression: AMS (altered mental status) Primary Care Provider: Abbey Virgen ED Provider: Ashli Erazo Home Meds and New Rx's Prescriptions: Continued citalopram 10 mg tablet 10 mg PO DAILY Qty: 30 5RF lisinopril 5 mg tablet 5 mg PO DAILY metformin 500 mg tablet 1,000 mg PO BID loratadine [Allerclear] 10 mg tablet 10 mg PO DAILY rosuvastatin 10 mg tablet 20 mg PO DAILY Qty: 60 0RF aspirin 81 mg tablet,delayed release (DR/EC) 81 mg PO DAILY Qty: 30 0RF Jardiance 10 mg tablet 25 mg PO DAILY Discharge Instructions Additional Instructions: Please continue to wear your monitor and follow-up with Dr. Burton at your scheduled appointment Should you have new or worsening complaints please return Your labs and MRI and CT of your head are all within normal limits and neurology has evaluated you in the emergency department Please return earlier should you have any new or worsening complaints Referrals: Abbey Virgen [Primary Care Provider] - Catherine Burton MD [ [facility] STAFF PHYSICIAN] - [facility] General Date/Time Provider Initiated Documentation: 08/08/24 08:37 . [facility] Narrative: The patient is a 44-year-old male who presents with report of dizziness and headache that started this morning around 0700 hours. He reports experiencing a headache upon awakening this morning, which was followed by dizziness during his shower. He also describes a sensation of mental fog the previous day. His symptoms are not as strong as his last episode in 03/2023. His medical history includes a recent cerebrovascular accident (CVA), lacunar infarct, and a patent foramen ovale (PFO), which is currently under cardiology evaluation. He underwent a Holter monitor test, which did not reveal any abnormal heart rate or rhythm. His symptoms have been persistent since the onset, and he is experiencing difficulty walking due to these symptoms. He reports no chest pain, shortness of breath, palpitations, or changes in vision. He also reports no alterations in strength or sensation in his extremities and has no additional complaints at this time. Supplemental Information He has a history of hypertension, hyperlipidemia, and diabetes. Related Data Home Medications ?Medication ?Instructions ?Recorded ?Confirmed lisinopril 5 mg tablet 5 mg PO DAILY 03/14/24 08/08/24 loratadine 10 mg tablet 10 mg PO DAILY 03/14/24 08/08/24 (Allerclear) metformin 500 mg tablet 1,000 mg PO BID 03/14/24 08/08/24 aspirin 81 mg tablet,delayed 81 mg PO DAILY #30 tabs 03/16/24 08/08/24 release rosuvastatin 10 mg tablet 20 mg (2 x 10 mg) PO DAILY #60 tabs 03/16/24 08/08/24 empagliflozin 10 mg tablet 25 mg PO DAILY 04/25/24 08/08/24 (Jardiance) citalopram 10 mg tablet 10 mg PO DAILY #30 tabs 07/27/24 08/08/24 Previous Rx's ?Medication ?Instructions ?Recorded aspirin 81 mg tablet,delayed 81 mg PO DAILY #30 tabs 03/16/24 release rosuvastatin 10 mg tablet 20 mg (2 x 10 mg) PO DAILY #60 tabs 03/16/24 citalopram 10 mg tablet 10 mg PO DAILY #30 tabs 07/27/24 Allergies Allergy/AdvReac Type Severity Reaction Status Date / Time No Known Allergies Allergy Unverified 08/08/24 08:47 General Stated Complaint: CVA/TIA TARYN: 2 Exam Narrative Exam Narrative: General Appearance: Patient is alert and oriented x4. Vital signs: Within normal limits. HEENT: Pupils are equal, round, and reactive to light and accommodation. Extraocular muscles are intact. Respiratory: Lungs are clear to auscultation. Cardiovascular: Cardiac rate and rhythm are regular. Back, Musculoskeletal: An ataxic gait is noted. Extremities: Sensation is intact distally to all four extremities. Skin: Warm and dry, no rash. Neurological: Patient is able to follow basic commands. Negative [id number] test, negative ecav-in-siuf test. Cranial nerves II through XII are intact. Other observations: None. Course Vital Signs Vital signs: Vital Signs Temperature 37.0 C 08/08/24 08:41 Pulse 73 08/08/24 08:41 Respiratory Rate 14 08/08/24 08:41 Blood Pressure 151/74 H 08/08/24 08:41 Pulse Oximetry 94 08/08/24 08:41 Temperature 37.0 C 08/08/24 08:41 Temperature Source Oral 08/08/24 08:41 Pulse 60 08/08/24 11:16 Pulse 62 08/08/24 11:10 Respiratory Rate 23 08/08/24 11:16 Respiratory Effort Normal, Non-Labored 08/08/24 09:22 Respiratory Depth Normal 08/08/24 09:22 Respiratory Pattern Normal 08/08/24 09:22 Blood Pressure 129/71 08/08/24 11:16 Blood Pressure Mean 91 08/08/24 11:16 Blood Pressure Position Sitting 08/08/24 08:41 Pulse Oximetry 95 08/08/24 11:16 Oxygen Delivery Method Room Air 08/08/24 08:41 Oxygen Flow Rate 0 08/08/24 08:41 Pain Level 1 08/08/24 08:41 Lab/Test Results Lab/Test Results: Laboratory Tests Range/Units 08/08/24 08/08/24 08/08/24 08:45 09:52 10:52 WBC (4.4-10.8) 10^3/uL 6.57 RBC (4.36-5.78) 10^6/uL 5.73 Hgb (13.5-17.5) g/dL 17.6 H Hct (40.0-50.0) % 50.8 H MCV (80-95) fL 89 MCH (27.0-33.0) pg 30.7 MCHC (32.0-36.0) % 34.6 RDW (11.8-14.1) % 12.4 Plt Count (130-400) 10^3/uL 220 MPV (8.0-11.0) fL 10.3 Immature Gran % % 0.2 Neutrophils % % 61.4 Lymphocytes % % 25.0 Monocytes % % 10.5 Eosinophils % % 1.8 Basophils % % 1.1 Nucleated RBC % (0.0-0.3) % 0.0 Absolute Neutrophils (1.2-6.7) 10^3/uL 4.04 Absolute Lymphocytes (1.2-3.4) 10^3/uL 1.64 Absolute Monocytes (0.1-0.8) 10^3/uL 0.69 Absolute Eosinophils (0.0-0.7) 10^3/uL 0.12 Absolute Basophils (0.0-0.2) 10^3/uL 0.07 Sodium (136-145) mmol/L 141 Potassium (3.5-5.1) mmol/L 4.0 Chloride (98-107) mmol/L 104 Carbon Dioxide (21.0-32.0) mmol/L 26.4 Anion Gap (3-11) mmol/L 10.6 BUN (7-18) mg/dL 13 Creatinine (0.70-1.30) mg/dL 1.0 Est GFR (CKD-EPI 2020) (mL/min/1.73m2) 95.77 Glucose (74-106) mg/dL 165 H Calcium (8.5-10.1) mg/dL 9.4 Magnesium (1.8-2.4) mg/dL 2.0 Total Bilirubin (0.2-1.0) mg/dL 0.87 AST (15-37) U/L 22 ALT (16-63) U/L 70 H Alkaline Phosphatase (46-116) U/L 47 Troponin I (<or=76) ng/L 12 10 Total Protein (6.4-8.2) g/dL 7.6 Albumin (3.4-5.0) g/dL 4.6 COVID-19 Source Nasopharynx SARS-CoV-2 (PCR) (Negative) Negative Influenza Type A (PCR) (Negative) Negative Influenza Type B (PCR) (Negative) Negative RSV (PCR) (Negative) Negative Range/Units 08/08/24 11:50 WBC (4.4-10.8) 10^3/uL RBC (4.36-5.78) 10^6/uL Hgb (13.5-17.5) g/dL Hct (40.0-50.0) % MCV (80-95) fL MCH (27.0-33.0) pg MCHC (32.0-36.0) % RDW (11.8-14.1) % Plt Count (130-400) 10^3/uL MPV (8.0-11.0) fL Immature Gran % % Neutrophils % % Lymphocytes % % Monocytes % % Eosinophils % % Basophils % % Nucleated RBC % (0.0-0.3) % Absolute Neutrophils (1.2-6.7) 10^3/uL Absolute Lymphocytes (1.2-3.4) 10^3/uL Absolute Monocytes (0.1-0.8) 10^3/uL Absolute Eosinophils (0.0-0.7) 10^3/uL Absolute Basophils (0.0-0.2) 10^3/uL Sodium (136-145) mmol/L Potassium (3.5-5.1) mmol/L Chloride (98-107) mmol/L Carbon Dioxide (21.0-32.0) mmol/L Anion Gap (3-11) mmol/L BUN (7-18) mg/dL Creatinine (0.70-1.30) mg/dL Est GFR (CKD-EPI 2020) (mL/min/1.73m2) Glucose (74-106) mg/dL Calcium (8.5-10.1) mg/dL Magnesium (1.8-2.4) mg/dL Total Bilirubin (0.2-1.0) mg/dL AST (15-37) U/L ALT (16-63) U/L Alkaline Phosphatase (46-116) U/L Troponin I (<or=76) ng/L Cancelled Total Protein (6.4-8.2) g/dL Albumin (3.4-5.0) g/dL COVID-19 Source SARS-CoV-2 (PCR) (Negative) Influenza Type A (PCR) (Negative) Influenza Type B (PCR) (Negative) RSV (PCR) (Negative) Medical Decision Making Imaging CTA head and neck does not show evidence of acute abnormality. MRI was read as negative by the radiologist. Initial Assessment: 44-year-old male presents with dizziness and headache that started this morning around 7 AM. Recent CVA, lacunar infarct, and diagnosed with a PFO. History of hypertension, hyperlipidemia, and diabetes. Symptoms persistent, trouble walking, no chest pain, shortness of breath, palpitations, vision changes, or strength/sensation changes in extremities. ED Course: - Physical exam: alert and oriented x4, pupils equal, round, reactive to light and accommodation, extraocular muscles intact, lungs clear to auscultation, cardiac rate and rhythm regular, able to follow basic commands, ataxic gait noted. - Neurological exam: negative finger to nose, negative heel to frazier, cranial nerves II through XII intact, ataxic gait, sensation intact distally to all four extremities. - Ordered CTA head and neck, stroke protocol, diagnostic blood work including troponin, CBC, chemistry, fluid chest x-ray, EKG, and telemetry monitoring. - Telemetry neuro consult placed at 8:45 AM. - 9:41 AM: delay in telemetry neuro due to camera issue, zoom arranged. - CTA head and neck: no evidence of acute abnormality (read by me). - MRI ordered. - Aspirin administered. - Case discussed with Dr. Hurt from telemetry neurology; recommendation to discharge home with close outpatient neurology follow-up if MRI negative. - MRI read as negative by radiologist. Patient symptoms have resolved and he is ambulatory with steady gait in no acute distress at baseline mentation tolerating p.o. - Case reviewed with Dr. Burton; follow-up in outpatient setting. Final Assessment: Persistent dizziness and headache with ataxic gait. No acute abnormalities on CTA head and neck or MRI. Aspirin administered. Plan to observe and follow up with outpatient neurology. Clinical Impression: - Dizziness - Headache Disposition: - Discharge: Home with close outpatient neurology follow-up. - Follow-Up: Dr. Burton to follow up in outpatient setting. MDM Components Evaluation: - Number of Differential Diagnoses or Management Options: Dizziness, headache. - Amount and Complexity of Data Reviewed: CTA head and neck, MRI, diagnostic blood work, telemetry neuro consult. - Risk of Complication and Morbidity or Mortality: Moderate due to recent CVA, PFO, and persistent symptoms. 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) PFO (patent foramen ovale) (Acute) Brainstem stroke (Acute) Lacunar infarct, acute (Acute) Polycythemia (Acute) Hyperlipidemia (Chronic) Type 2 diabetes mellitus (Chronic) HTN (hypertension) (Chronic) Ataxia due to acute cerebrovascular disease (Acute) Ataxic gait determined by examination (Acute) Binocular vision disorder with diplopia (Acute) Medical History Deep vein thrombosis Lacunar infarction Binocular vision disorder Surgical History No pertinent past surgical history Family History Maternal Grandfather Hyperlipidemia Maternal Grandmother Hyperlipidemia Hypertension Social History Smoking/Tobacco Use Status: Never Smoking risk assessment performed?: Yes Alcohol Intake: current Alcohol Intake frequency: a few times a month Alcohol type: hard liquor Drug use: Never Substance use type: does not use Household members: significant other Housing: house Number of Children: 0 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
== END 2024-08-08 13:46 | disposition home or self-care (01) ==
PROVIDERS: Emergency Provider Physician Assistant; PCP Nurse Practitioner Family
DX: R41.82 Altered mental status, unspecified (principal); R51.9 Headache, unspecified; R42 Dizziness and giddiness; E11.69 Type 2 diabetes mellitus with other specified complication; I10 Essential (primary) hypertension; I63.81 Other cerebral infarction due to occlusion or stenosis of small artery; Q21.12 Patent foramen ovale
CPT/HCPCS: 36415; 36416; 70496; 70498; 80053; 82962; 87637; 93005; 99285; 70551; 71046; 83735; 84484; 85025; 93010

== ENCOUNTER 2024-08-12 13:47 | Emergency (ER) | payer BC, SELFPAY ==
[2024-08-12] VITALS (35 sets, daily range): BP systolic 114–142; BP diastolic 67–90; PULSE 59–89; RESP 11–16; TEMP 37; O2SAT 92–98
--- NOTE | 2024-08-12 13:45 | RT.EKG_ITS ---
APPROVED REPORT Exam: Resting ECG Reason for Exam: dizzy Patient Location: E HR:71 bpm ECG Measurements Heart Rate 71 AXIS SC 160 P 66 QRSd 112 QRS 63 QT 381 T 59 QTc 416 Conclusion Sinus rhythm...normal P axis, V-rate 60- [address] segment or T wave abnormalities to suggest occlusive [place]
--- NOTE | 2024-08-12 14:29 | ED.GENADUL_ITS ---
Discharge Plan Disposition Patient Disposition: Against Medical Advice Condition: Improving Discharge Details Clinical Impression: Dizziness Primary Care Provider: Abbey Virgen ED Provider: Arelne Lucas Home Meds and New Rx's Prescriptions: Continued citalopram 10 mg tablet 10 mg PO DAILY Qty: 30 5RF lisinopril 5 mg tablet 5 mg PO DAILY metformin 500 mg tablet 1,000 mg PO BID loratadine [Allerclear] 10 mg tablet 10 mg PO DAILY rosuvastatin 10 mg tablet 20 mg PO DAILY Qty: 60 0RF aspirin 81 mg tablet,delayed release (DR/EC) 81 mg PO DAILY Qty: 30 0RF Jardiance 10 mg tablet 25 mg PO DAILY Discharge Instructions Instructions: Dizziness, Adult ED Additional Instructions: Call your neurologist to schedule a followup appointment for as soon as possible, as well as an outpatient MRI ideally on Wednesday. You are leaving against medical advice. Please return to the emergency department if you change your mind, or if you are unable to followup with neurology and get an MRI on Wednesday. Return to the emergency department if your symptoms return or if you develop new symptoms such as vertigo, double vision, vomiting, severe headache, weakness, numbness, difficulty walking, or if you have any other concerns. . Referrals: Abbey Virgen [Primary Care Provider] - Discharge Data Discharge Date/Time-TO BE ENTERED AT DEPARTURE: 08/12/24 17:43 HPI General Mode of arrival: ambulatory . Date/Time Provider Initiated Documentation: 08/12/24 14:02 . Limitations to Documentation: no limitations . Information obtained by: patient, family and old records reviewed . HPI Narrative: 44yo M with hx prior CVA 03/2024, known PFO, on baby aspirin, presenting for dizziness and headache, onset around 1300. Had similar symptoms several days ago for which he was seen in this ED with a reassuring workup at that time. Dizziness is difficult to describe, does not feel like the room is spinning, does feel 'like the world settles'. Feels like he is off balance; not sure if his legs are weak. Whole body felt 'tingling' . Symptoms resolved shortly after arrival to the ED. Prior stroke presented with headache and diplopia. Otherwise in his usual state of health with no fevers, chills, rash, nausea, vomiting, head injuries, vision changes, numbness, chest pain, shortness of breath, or other concerns. Related Data Home Medications ?Medication ?Instructions ?Recorded ?Confirmed lisinopril 5 mg tablet 5 mg PO DAILY 03/14/24 08/12/24 loratadine 10 mg tablet 10 mg PO DAILY 03/14/24 08/12/24 (Allerclear) metformin 500 mg tablet 1,000 mg PO BID 03/14/24 08/12/24 aspirin 81 mg tablet,delayed 81 mg PO DAILY #30 tabs 03/16/24 08/12/24 release rosuvastatin 10 mg tablet 20 mg (2 x 10 mg) PO DAILY #60 tabs 03/16/24 08/12/24 empagliflozin 10 mg tablet 25 mg PO DAILY 04/25/24 08/12/24 (Jardiance) citalopram 10 mg tablet 10 mg PO DAILY #30 tabs 07/27/24 08/12/24 Previous Rx's ?Medication ?Instructions ?Recorded aspirin 81 mg tablet,delayed 81 mg PO DAILY #30 tabs 03/16/24 release rosuvastatin 10 mg tablet 20 mg (2 x 10 mg) PO DAILY #60 tabs 03/16/24 citalopram 10 mg tablet 10 mg PO DAILY #30 tabs 07/27/24 Allergies Allergy/AdvReac Type Severity Reaction Status Date / Time No Known Allergies Allergy Unverified 08/12/24 14:01 General Stated Complaint: CVA/TIA TARYN: 3 Review of Systems Narrative: see HPI Exam Narrative Exam Narrative: General: Alert, well appearing, well nourished, in no acute distress. Head: Normocephalic, atraumatic Neck: Trachea midline, ?Neck supple. ENT: ?MMM.? No oropharygeal lesions or exudate. Cardiac: ?RRR, no murmurs appreciated Resp: No respiratory distress. CTAB. Abd: ?Non-distended Extremities: ?No deformities.? No peripheral edema. Neuro: ? GCS 15.? PERRL.? EOMI.? Fluent speech, no dysarthria. Motor- 5/5 strength symmetric bilateral upper and lower extremities including shoulder abductors/adductors, elbow flexors/extensors, wrist flexors/extensors, finger abductors/adductors, hipflexors/extensors, knee flexors/extensors, ankle dorsiflexors and planter flexors. Sensation- ?Intact to light touch and symmetric multiple dermatomes including upper and lower extremities Coordination- No dysmetria on finger to nose Gait/station: ?Normal stance.? No truncal ataxia. CRANIAL NERVES: II: Pupils equal and reactive, III, IV, : EOM intact, no gaze preference or deviation, no nystagmus. V: normal sensation in V1, V2, and V3 segments bilaterally VII: no asymmetry, no nasolabial fold flattening VIII: normal hearing to speech IX, X: normal palatal elevation, no uvular deviation XI: 5/5 head turn and 5/5 shoulder shrug bilaterally XII: midline tongue protrusion Course Vital Signs Vital signs: Vital Signs Temperature 37.0 C 08/12/24 14:02 Pulse 88 08/12/24 14:02 Respiratory Rate 16 08/12/24 14:02 Blood Pressure 136/90 08/12/24 14:02 Pulse Oximetry 98 08/12/24 14:02 Temperature 37.0 C 08/12/24 14:02 Temperature Source Oral 08/12/24 14:02 Pulse 88 08/12/24 14:02 Respiratory Rate 15 08/12/24 14:06 Respiratory Effort Normal 08/12/24 14:06 Respiratory Depth Normal 08/12/24 14:06 Respiratory Pattern Normal 08/12/24 14:06 Blood Pressure 136/90 08/12/24 14:02 Blood Pressure Position Sitting 08/12/24 14:02 Pulse Oximetry 98 08/12/24 14:02 Oxygen Delivery Method Room Air 08/12/24 14:02 Oxygen Flow Rate 0 08/12/24 14:02 Pain Level 6 08/12/24 14:02 Comment headache 08/12/24 14:02 Medical Decision Making 44yo M with hx prior brainstem infarct Mar 2024, PFO, on baby aspirin, presenting for dizziness, headache, and bilateral lower extremity weakness since 1300 today. Similar symptoms on Wednesday for which he presented to the ED here and had a reassuring workup including labs , CTA, and MRI. Vital signs reassuring on arrival. Normal physical and neurologic exam. Will give tylenol for headache. Low suspicion for ICH however will avoid NSAIDs for now pending workup. EKG SR, no ST segment or T wave abnormalities to suggest occlusive [place]. Labs reviewed as below, CBC with slightly elevated Hg at 18.4, CMP with no actionable abnormalities, VBG with slight respiratory alkalosis consistent with mild hyperventilation, initial troponin normal, BNP normal, coags normal. Given pt history, consulted teleneurology who evaluated patient; recommended full dose aspirin, sending TSH, UDS, and obtaining emergent MRI. No indication for repeat CTA at this time as not a thrombectomy candidate. Plavix not indicated. Spoke with [facility] [place]; they are at capacity. Discussed with [facility] neurology Dr. Neumann, pt not felt to need emergent MRI and she advised 24 hour observation and outpatient MRI on Wednesday. Spoke with [facility] transfer center; they are also at capacity and denied. On reassessment patient remains well appearing with a normal neurologic exam. Headache has entirely resolved. I discussed with pt and family at bedside recommendations from both teleneurology (who spoke with him and evalauted him over video) and [facility] neurology. With both [facility] and [facility], would need to look farther afield for transfer as recommended by teleneuro; patient refused this. I then discussed the option to admit the patient here for monitoring and if no events, plan for outpatient MRI on Wednesday (as recommended by [facility]); patient also refused this and states he would like to monitor for symptoms at home. I reviewed with Mr. Kolb my recommendation that he stay here for monitoring, as despite his recent reassuring MRI and resolution of symptoms currently he is certainly at higher risk for an acute CVA that could result is permanent disability or . He verbalized understanding of my concerns and reiterated that he would like to leave. He states he will return immediately if his symptoms return or if he develops new symptoms. He has a neurology appointment scheduled for next Wednesday. I advised him to contact his neurologist as soon as possible to discuss plan for MRI, and to attempt to move up this appointment to Wednesday. He agrees to do this. He certainly has decision making capacity and I have no indication to hold him against his will, and his plan to monitor symptoms at home and followup with his neurologist on Wednesday is not entirely unreasonable, certainly is the best option if he is not willing to stay. Left AMA. He was encouraged to return at any time should he change his mind. Discharge instructions and return precautions were reviewed with patient and family who verbalized understanding. All questions were answered. Imaging Data Radiologic Study: Imaging: X-Ray Radiologist's impression: IMPRESSION: No large territorial infarct or intracranial bleed Lab Data Lab results reviewed: Yes I reviewed the patient's lab results. Labs: Laboratory Tests Range/Units 08/12/24 08/12/24 08/12/24 14:08 15:56 17:20 WBC (4.4-10.8) 10^3/uL 6.65 RBC (4.36-5.78) 10^6/uL 6.04 H Hgb (13.5-17.5) g/dL 18.4 H Hct (40.0-50.0) % 52.5 H MCV (80-95) fL 87 MCH (27.0-33.0) pg 30.5 MCHC (32.0-36.0) % 35.0 RDW (11.8-14.1) % 12.4 Plt Count (130-400) 10^3/uL 254 MPV (8.0-11.0) fL 10.3 Immature Gran % % 0.2 Neutrophils % % 60.6 Lymphocytes % % 26.8 Monocytes % % 9.9 Eosinophils % % 1.4 Basophils % % 1.1 Nucleated RBC % (0.0-0.3) % 0.0 Absolute Neutrophils (1.2-6.7) 10^3/uL 4.04 Absolute Lymphocytes (1.2-3.4) 10^3/uL 1.78 Absolute Monocytes (0.1-0.8) 10^3/uL 0.66 Absolute Eosinophils (0.0-0.7) 10^3/uL 0.09 Absolute Basophils (0.0-0.2) 10^3/uL 0.07 PT (9.1-11.1) sec 10.9 INR (0.9-1.1) 1.1 APTT (20.6-30.2) sec 24.3 VBG pH (7.31-7.41) 7.43 H VBG pCO2 (41-51) mmHg 37 L VBG pO2 mmHg 51 VBG HCO3 (23-28) mmol/L 24 VBG Total CO2 (24-29) mmol/L 20 L VBG O2 Saturation % 85 VBG Base Excess (-2-3) mmol/L 0 Sodium (136-145) mmol/L 141 Potassium (3.5-5.1) mmol/L 3.8 Chloride (98-107) mmol/L 104 Carbon Dioxide (21.0-32.0) mmol/L 27.0 Anion Gap (3-11) mmol/L 10.0 BUN (7-18) mg/dL 17 Creatinine (0.70-1.30) mg/dL 0.9 Est GFR (CKD-EPI 2020) (mL/min/1.73m2) 108.68 Glucose (74-106) mg/dL 121 H Hemoglobin A1c (<5.7) % 6.8 H Calcium (8.5-10.1) mg/dL 9.6 Magnesium (1.8-2.4) mg/dL 1.8 Total Bilirubin (0.2-1.0) mg/dL 1.05 H AST (15-37) U/L 24 ALT (16-63) U/L 76 H Alkaline Phosphatase (46-116) U/L 53 Troponin I (<or=76) ng/L 8 6 NT-Pro-B Natriuret Pep (<300) pg/mL 59 Total Protein (6.4-8.2) g/dL 7.8 Albumin (3.4-5.0) g/dL 4.8 Triglycerides (<150) mg/dL 96 Total Cholesterol (<200) mg/dL 137 LDL Cholesterol, Calc (<100) mg/dL 73 HDL Cholesterol (40-60) mg/dL 45 Vitamin B12 (193-986) pg/mL 345 Cancelled TSH (0.36-3.74) uIU/mL 1.98 Ethyl Alcohol (<10) mg/dL < 3.0 Quality:SDOH Health Related Social Needs: No Data to Display PFSH All Active Problems (Updated 08/12/24 @ 17:22 by Arlene Lucas MD) Dizziness (Acute) AMS (altered mental status) (Acute) Migraine headache without aura (Acute) 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) (Acute) PFO (patent foramen ovale) (Acute) Brainstem stroke (Acute) Lacunar infarct, acute (Acute) Polycythemia (Acute) Hyperlipidemia (Chronic) Type 2 diabetes mellitus (Chronic) HTN (hypertension) (Chronic) Ataxia due to acute cerebrovascular disease (Acute) Ataxic gait determined by examination (Acute) Binocular vision disorder with diplopia (Acute) Medical History Deep vein thrombosis Lacunar infarction Binocular vision disorder Surgical History No pertinent past surgical history Family History Maternal Grandfather Hyperlipidemia Maternal Grandmother Hyperlipidemia Hypertension Social History Smoking/Tobacco Use Status: Never Smoking risk assessment performed?: Yes Alcohol Intake: current Alcohol Intake frequency: a few times a month Alcohol type: hard liquor Drug use: Never Substance use type: does not use Household members: significant other Housing: house Number of Children: 0 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
[2024-08-12 14:30] LABS: BE (Venous) 0 mmol/L (-2-3); HCO3 (Venous) 24 mmol/L (23-28); O2 Sat (Venous) 85 %; TCO2 (Venous) 20 mmol/L (24-29); pCO2 (Venous) 37 mmHg (41-51); pH (Venous) 7.43 (7.31-7.41); pO2 (Venous) 51 mmHg
[2024-08-12] MEDS: Acetaminophen 500 MG TAB 1000 MG PO (14:30)
[2024-08-12 14:33] LABS: Abs Immature Grans 0.01 10^3/uL (0.0-0.06); Absolute Basophil Count 0.07 10^3/uL (0.0-0.2); Absolute Eosinophil Count 0.09 10^3/uL (0.0-0.7); Absolute Lymphocyte Count 1.78 10^3/uL (1.2-3.4); Absolute Monocyte Count 0.66 10^3/uL (0.1-0.8); Absolute Neutrophil Count 4.04 10^3/uL (1.2-6.7); Basophils % 1.1 %; Eosinophils % 1.4 %; HCT 52.5 % (40.0-50.0); HGB 18.4 g/dL (13.5-17.5); Immature Grans % 0.2 %; Lymphocytes % 26.8 %; MCH 30.5 pg (27.0-33.0); MCV 87 fL (80-95); MPV 10.3 fL (8.0-11.0); Monocytes % 9.9 %; Neutrophils % 60.6 %; Platelet Count 254 10^3/uL (130-400); RBC 6.04 10^6/uL (4.36-5.78); RDW 12.4 % (11.8-14.1); RDW-SD 39.3 fL; WBC 6.65 10^3/uL (4.4-10.8)
--- NOTE | 2024-08-12 14:39 | DI.CT_ITS ---
Exam(s) CT HEAD - STROKE PROTOCOL EXAM: CT HEAD - STROKE PROTOCOL CLINICAL HISTORY: LE weakness, dizzy, hx prior CVA 03/28. TECHNIQUE: Imaging Protocol: Axial computed tomography images with coronal and sagittal reformatted images were created and reviewed COMPARISON: CT CT BRAIN NECK CTA from 08/08/2024 FINDINGS: Ventricles and Extra axial spaces: Normal in size and morphology for the patient's age. Hemorrhage: None. Cerebral parenchyma: No evidence of acute infarct or mass. Midline shift: None. Brainstem/Cerebellum: Normal. Calvarium: Normal. Visualized Paranasal sinuses:Clear. Mastoids: Clear. Soft Tissues: Unremarkable. ORBITS: Unremarkable. PITUITARY: Not enlarged. IMPRESSION: No acute intracranial process. RADIATION DOSE DELIVERED: Total DLP DATA REPOSITORY: All CT scans at this facility are submitted to the National Radiology Data Registry (NRDR) Dose Index Registry (DIR) with the [employer] (A[employer]). RADIATION OPTIMIZATION: All CT scans at this facility use at least one of these dose optimization te chniques: automated exposure control; mA and/or kV adjustment per patient size (includes targeted exa ms where dose is matched to clinical indication); or iterative reconstruction.
[2024-08-12 14:47] LABS: INR 1.1 (0.9-1.1); PTT Activated 24.3 sec (20.6-30.2); Prothrombin Time 10.9 sec (9.1-11.1)
--- NOTE | 2024-08-12 14:49 | DI.VRAD_ITS ---
PROCEDURE INFORMATION: Exam: CT Head Without Contrast Exam date and time: 08/12/2024 2:33 PM Age: 44 years old Clinical indication: Stroke-like symptoms; Dizziness/giddiness; Generalized weakness; Additional info: HX stroke TECHNIQUE: Imaging protocol: Computed tomography of the head without contrast. Radiation optimization: All CT scans at this facility use at least one of these dose optimization techniques: automated exposure control; mA and/or kV adjustment per patient size (includes targeted exams where dose is matched to clinical indication); or iterative reconstruction. Other technique: STROKE PROTOCOL was implemented. COMPARISON: MR BRAIN WO 08/08/2024 11:41 AM FINDINGS: Brain: Normal. No hemorrhage. Unremarkable white matter. No mass effect. Cerebral ventricles: No ventriculomegaly. Paranasal sinuses: Visualized sinuses are unremarkable. No fluid levels. Mastoid air cells: Visualized mastoid air cells are well aerated. Bones: Unremarkable. No acute fracture. Soft tissues: Unremarkable. IMPRESSION: No large territorial infarct or intracranial bleed. ASSESSMENT: ASPECTS ([place]edy Stroke Program Early CT Score) is 10. Dictated and Authenticated by: Saji Romero MD. Orderin Shayy Jacobs MD
[2024-08-12 14:57] LABS: ALT 76 U/L (16-63); AST 24 U/L (15-37); Albumin 4.8 g/dL (3.4-5.0); Alkaline Phosphatase 53 U/L (46-116); BUN 17 mg/dL (7-18); Bilirubin, Total 1.05 mg/dL (0.2-1.0); CREATININE 0.9 mg/dL (0.70-1.30); Calcium 9.6 mg/dL (8.5-10.1); Chloride 104 mmol/L (98-107); Estimated GFR 108.68 (mL/min/1.73m2); Glucose 121 mg/dL (74-106); Magnesium 1.8 mg/dL (1.8-2.4); NT-proBNP 59 pg/mL (<300); Potassium 3.8 mmol/L (3.5-5.1); Sodium 141 mmol/L (136-145); Total Protein 7.8 g/dL (6.4-8.2); Troponin I 8 ng/L (<or=76)
[2024-08-12] MEDS: Aspirin 81 MG CHEW 243 MG CH (16:03)
[2024-08-12 16:18] LABS: Troponin I 6 ng/L (<or=76)
[2024-08-12 16:26] LABS: TSH (W/Ref FT4) 1.98 uIU/mL (0.36-3.74)
[2024-08-12 17:45] LABS: ETHANOL BLOOD < 3.0 mg/dL (<10)
[2024-08-12 17:56] LABS: Hemoglobin A1C 6.8 % (<5.7)
[2024-08-12 18:20] LABS: Calculated LDL 73 mg/dL (<100); Cholesterol 137 mg/dL (<200); HDL Cholesterol 45 mg/dL (40-60); Triglyceride 96 mg/dL (<150); Vitamin B12 345 pg/mL (193-986)
== END 2024-08-12 17:43 | disposition left against medical advice (07) ==
PROVIDERS: Emergency Provider Student in an Organized Health Care Education/Training Program; PCP Nurse Practitioner Family
DX: R42 Dizziness and giddiness (principal); R51.9 Headache, unspecified; E11.9 Type 2 diabetes mellitus without complications; I10 Essential (primary) hypertension; E78.5 Hyperlipidemia, unspecified; I69.393 Ataxia following cerebral infarction; Z86.73 Personal history of transient ischemic attack (TIA), and cerebral infarction without residual deficits; Z79.82 Long term (current) use of aspirin; Z79.84 Long term (current) use of oral hypoglycemic drugs; Z53.29 Procedure and treatment not carried out because of patient's decision for other reasons
CPT/HCPCS: 36415; 80053; 80061; 82805; 87426; 93005; 99285; 70450; 80320; 82607; 83036; 83735; 83880; 84443; 84484; 85025; 85610; 85730; 93010; 99284

== ENCOUNTER 2024-08-22 07:48 | Outpatient (CLI) | payer BC, SELFPAY | END 2024-08-22 07:49 | disposition home or self-care (01) | PROVIDERS: PCP Nurse Practitioner Family; Visit Provider Psychiatry & Neurology Neurology | DX: I63.9 Cerebral infarction, unspecified (principal) | CPT/HCPCS: 93246 ==

== ENCOUNTER 2024-09-15 06:48 | Outpatient (CLI) | payer BC, SELFPAY ==
--- NOTE | 2024-09-15 11:29 | W.CARDEVENT ---
Date of service: 09/15/24 Time of Service: 11:29 Cardiac Event Recorder Referring Provider:: Catherine Burton Indications:: Stroke Cardiac Event Note: This is a cardiac event monitor. Patient was monitored for 11 days and 11 hours. Rhythm throughout was sinus with an average heart rate of 73. Minimum was 41 maximum 1 49 There were rare ventricular ectopic beats. There was one run of nonsustained ventricular tachycardia which occurred at 3 AM and was 12 beats in length. There are very rare atrial premature beats. There was no atrial relation, no high-grade AV block, no pauses greater than 3 seconds. No symptoms were reported
== END 2024-09-15 06:49 | disposition home or self-care (01) ==
LOC: CARDOPNVT 06:48
PROVIDERS: PCP Nurse Practitioner Family; Referring Provider Psychiatry & Neurology Neurology; Visit Provider Internal Medicine Cardiovascular Disease
DX: I63.9 Cerebral infarction, unspecified (principal); I47.20 Ventricular tachycardia, unspecified

== ENCOUNTER 2025-01-15 19:18 | Outpatient (REF) | payer BC, SELFPAY ==
[2025-01-17 10:41] LABS: Lyme Ab w Rflx to Lyme Confirm Negative (Negative)
[2025-01-19 15:26] LABS: B. miyamotoi PCR Negative (Negative); Babesia divergens/MO-1 Negative (Negative); Ehrlichia muris eauclairensis Negative (Negative)
== END 2025-01-15 19:19 | disposition home or self-care (01) ==
LOC: NCHCN 19:18
PROVIDERS: PCP Nurse Practitioner Family; Visit Provider Nurse Practitioner Family
DX: R53.81 Other malaise (principal); R53.83 Other fatigue
CPT/HCPCS: 87798; 86618

== ENCOUNTER 2025-05-01 17:25 | Emergency (ER) | payer BC, SELFPAY ==
[2025-05-01 17:31] VITALS: BP 127/70; PULSE 71; RESP 18; TEMP 36.8; O2SAT 95
--- NOTE | 2025-05-01 17:55 | ED.GENADUL_ITS ---
Discharge Plan Disposition Patient Disposition: Home Condition: Stable Discharge Details Clinical Impression: Laceration of finger Primary Care Provider: Abbey Virgen ED Provider: Catherine Pinedo Home Meds and New Rx's Prescriptions: No Action magnesium 200 mg tablet 200 mg PO DAILY mecobalamin (vitamin B12) 1,000 mcg tablet,chewable 1,000 mcg PO DAILY lisinopril 5 mg tablet 5 mg PO DAILY metformin 500 mg tablet 1,000 mg PO BID loratadine [Allerclear] 10 mg tablet 10 mg PO DAILY rosuvastatin 10 mg tablet 20 mg PO DAILY Qty: 60 0RF aspirin 81 mg tablet,delayed release (DR/EC) 81 mg PO DAILY Qty: 30 0RF Jardiance 10 mg tablet 25 mg PO DAILY fluoxetine 10 mg tablet 20 mg PO DAILY Discharge Instructions Instructions: Laceration Repair With Glue ED Additional Instructions: You were seen in the emergency department today for evaluation of a laceration to your right index finger. In our department you had a full physical examination performed, there was no evidence of injury to the nerves, blood vessels, or tendons of the finger. The wound was repaired with glue and Steri- Strips. These will fall off on their own in a few days. Once they are off and the wound is healing you can continue to use dressings and [id number] antibiotic ointment to keep the area clean and dry. You can use Tylenol and ibuprofen as needed for management of pain. You should follow-up with your primary care provider to discuss this injury and any concerns that you have, especially if you start to notice any redness, swelling, or other signs of infection. You had a tetanus booster given to you at the emergency department today. Thank you for allowing us to be part of your care. HPI General Mode of arrival: ambulatory . Date/Time Provider Initiated Documentation: 05/01/25 17:33 . Limitations to Documentation: no limitations . Information obtained by: patient and family . HPI Narrative: This is a 44-year-old male patient with a history of CVA, type 2 diabetes, hypertension, presenting for evaluation of a finger laceration. The patient was in the kitchen cooking using a mandolin, and sustained a laceration to the pulp of his right index finger when the mandolin fell and he went to catch it. He did not injure any other parts of his body, noted that it was bleeding fairly heavily but stopped with direct pressure. He washed the hand thoroughly and presented for wound care and evaluation. He thinks that his last tetanus shot was within the last 5 to 10 years but is interested in obtaining a booster today. The patient reports that he is not having any numbness, tingling, or weakness of the finger distal to the injury. Prior to this event he was in his normal state of health. Related Data Home Medications Medication Instructions Recorded Confirmed lisinopril 5 mg tablet 5 mg PO DAILY 03/14/2405/01 loratadine 10 mg tablet 10 mg PO DAILY 03/14/2404/05 (Allerclear) metformin 500 mg tablet 1,000 mg PO BID 03/14/24 aspirin 81 mg tablet,delayed 81 mg PO DAILY #30 tabs 0 03/16/24 05/01/25 release rosuvastatin 10 mg tablet 20 mg (2 x 10 mg) PO DAILY # 60 tabs 03/16/24 05/01/25 empagliflozin 10 mg tablet 25 mg PO DAILY 04/25/24 (Jardiance) magnesium 200 mg tablet 200 mg PO DAILY 03/19/25 mecobalamin (vitamin B12) 1,000 1,000 mcg PO DAILY 05/01/25 mcg chewable tablet fluoxetine 10 mg tablet 20 mg PO DAILY 05/01/2504/05 Previous Rx's Medication Instructions Recorded aspirin 81 mg tablet,delayed 81 mg PO DAILY #30 tabs 0 03/16/24 release rosuvastatin 10 mg tablet 20 mg (2 x 10 mg) PO DAILY # 60 tabs 03/16/24 Allergies Allergy/AdvReac Type Severity Reaction Status Date / Time No Known Allergies Allergy Unverified 05/01/25 17:33 General Stated Complaint: Laceration TARYN: 4 Exam Narrative Exam Narrative: Gen: Awake and alert, in no apparent distress HEENT: Non-icteric sclera Neck: Supple Lungs: No apparent respiratory distress, normal respiratory effort. CV: Appears well perfused Abdomen: Non-distended MSK: Moves 4 extremities without apparent limitation in ROM. The patient's affected right index finger has brisk capillary refill, preserved sensation, and full resisted strength with flexion at the DIP and PIP. A 1 cm laceration is noted to the pulp of the right index finger, the angle of the blade is such that the skin edges are well-approximated. Wound is hemostatic. Skin: Visualized skin without rashes, cyanosis. Neuro: Normal Gait, no obvious focal deficits or facial asymmetry. Speaks in full, clear sentences. Psych: Appropriate for situation. Course Vital Signs Vital signs: Vital Signs Temperature 36.8 C 05/01/25 17:31 Pulse 71 05/01/25 17:31 Respiratory Rate 18 05/01/25 17:31 Blood Pressure 127/70 05/01/25 17:31 Pulse Oximetry 95 05/01/25 17:31 Temperature 36.8 C 05/01/25 17:31 Temperature Source Oral 05/01/25 17:31 Pulse 71 05/01/25 17:31 Respiratory Rate 18 05/01/25 17:31 Blood Pressure 127/70 05/01/25 17:31 Pulse Oximetry 95 05/01/25 17:31 Oxygen Delivery Method Room Air 05/01/25 17:31 Oxygen Flow Rate 0 05/01/25 17:31 Pain Level 0 05/01/25 17:31 Medical Decision Making This is a 44-year-old male patient presenting for evaluation of a finger laceration. Reassuringly this is an isolated injury, and the patient was in his normal state of health prior to this event. My differential includes but is not limited to laceration, no evidence for large blood vessel injury, nerve injury, and the patient has no evidence for tendon disruption. The duration of time since the injury is very short and the patient does not have any evidence of wound infection. The wound was thoroughly cleansed with antiseptic soap and pressure irrigation, and the laceration was repaired using skin glue and Steri-Strips. The patient tolerated this procedure well and did not require any anesthetic medication. I counseled the patient on wound care, and conservative pain management. A tetanus booster was provided to this patient. At this time, the patient has had a full medical evaluation and is safe for discharge to home. They are hemodynamically stable, ambulatory, and tolerating PO. They are understanding of the follow-up plan and return precautions. They left our facility without incident. 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) Ataxic gait determined by examination (Acute) Binocular vision disorder with diplopia (Acute) Medical History Deep vein thrombosis Lacunar infarction Binocular vision disorder Surgical History No pertinent past surgical history Family History Maternal Grandfather Hyperlipidemia Maternal Grandmother Hyperlipidemia Hypertension Social History Smoking/Tobacco Use Status: Never Smoking risk assessment performed?: Yes Alcohol Intake: current Alcohol Intake frequency: a few times a month Alcohol type: hard liquor Drug use: Never Substance use type: does not use Household members: significant other Housing: house Number of Children: 0 current occupation: [employer]ician Do you feel safe at home: Yes Do you feel safe in your relationship?: Yes
[2025-05-01] MEDS: Diph,Pertuss(Acell),Tet Vac/Pf 0.5 ML SYR IM (18:05)
== END 2025-05-01 18:11 | disposition home or self-care (01) ==
LOC: ER 18:05
PROVIDERS: Emergency Provider Emergency Medicine; PCP Nurse Practitioner Family
DX: S61.210A Laceration without foreign body of right index finger without damage to nail, initial encounter (principal); X58.XXXA Exposure to other specified factors, initial encounter
CPT/HCPCS: 12001; 90471; 90715